=== PATIENT | male | born 1940 | race American Indian/Alaskan Native ===

== ENCOUNTER 2020-08-04 06:46 | Inpatient (IN) | payer MEDICARE ==
--- NOTE | 2020-08-04 07:51 | Emergency Department Report ---
ED General Adult HPI - General Chief complaint: Dizziness Stated complaint: DIZZINESS/SOB PUI?: No Time Seen by Provider: 08/04/20 07:16 Source: patient Mode of arrival: Ambulatory - History of Present Illness Initial comments: The patient was evaluated in the emergency department for symptoms described in the history of present illness. He/she was evaluated in the context of the global COVID-19 pandemic, which necessitated consideration that the patient might be at risk for infection with the virus that causes COVID-19. Institutional protocols and algorithms that pertain to the evaluation of patients at risk for COVID-19 are in a state of rapid change based on information released by regulatory bodies including the CDC and federal and state organizations. These policies and algorithms were followed during the patient's care in the emergency department. Please note that these policies, procedures and recommendations changed on a rapid basis. The patient is an 80-year-old gentleman. The patient has a history of hypercoagulable state, supposed to be on Xarelto, intermittently compliant, hypertension, DVT, question pulmonary embolism, renal insufficiency, paroxysmal atrial fibrillation. The patient presents to the ER with multiple complaints. His first complaint is dizziness and feeling off balance. This is present for 1 week. The patient is intermittently compliant with his prescription medications. He denies headache, loss of vision, loss of taste and smell. He has intermittent chest pain. He has not had chest pain for about a week. Chest pain is intermittently central, left-sided and right-sided. He also describes shortness of breath. It is exertional. He also has chronic lower extremity swelling. He denies travel, surgery. -: Gradual, days(s) Location: chest Radiation: non-radiation Severity scale (0 -10): 0 Quality: aching Consistency: intermittent Improves with: rest Worsens with: movement - Related Data Home Medications Medication Instructions Recorded Confirmed Last Taken Furosemide [Lasix] 20 mg PO DAILY 12/27/17 12/27/17 12/26/17 20 mg Losartan [Cozaar] 100 mg PO DAILY 12/27/17 12/27/17 12/26/17 100 mg Potassium Chloride [Klor-Con 10 meq PO DAILY 12/27/17 12/27/17 12/26/17 Sprinkle] 10 meq Sertraline [Zoloft] 100 mg PO DAILY 12/27/17 12/27/17 12/26/17 100 mg hydrALAZINE 25 mg PO BID 12/27/17 12/27/17 12/26/17 25 mg Previous Rx's Medication Instructions Recorded Last Taken Type Rivaroxaban [Xarelto] 20 mg PO QDAY #30 tablet 10/02/15 12/26/17 Rx 20 mg carvediloL [Coreg] 3.125 mg PO BID #60 tablet 10/02/15 12/26/17 Rx 2 tablets Amiodarone [Cordarone 200 MG TAB] 200 mg PO BID #60 tab 12/27/17 Unknown Rx Allergies Allergy/AdvReac Type Severity Reaction Status Date / Time No Known Allergies Allergy Verified 08/04/20 07:06 ED Review of Systems ROS: Stated complaint: DIZZINESS/SOB Other details as noted in HPI Constitutional: fever Eyes: denies: eye discharge, vision change ENT: denies: epistaxis Respiratory: cough, shortness of breath Cardiovascular: chest pain, edema Gastrointestinal: denies: abdominal pain, nausea, vomiting, diarrhea, hematemesis, melena, hematochezia Genitourinary: denies: dysuria Musculoskeletal: myalgia Neurological: weakness, abnormal gait Hematological/Lymphatic: denies: easy bleeding ED Past Medical Hx - Past Medical History Hx Congestive Heart Failure: Yes Hx Pulmonary Embolism: Yes Hx Arthritis: Yes Additional medical history: blood clots in legs - Social History Smoking Status: Never Smoker - Medications Home Medications: Home Medications Medication Instructions Recorded Confirmed Last Taken Type Rivaroxaban [Xarelto] 20 mg PO QDAY #30 tablet 10/02/15 12/27/17 12/26/17 Rx 20 mg carvediloL [Coreg] 3.125 mg PO BID #60 tablet 10/02/15 12/27/17 12/26/17 Rx 2 tablets Amiodarone [Cordarone 200 MG TAB] 200 mg PO BID #60 tab 12/27/17 Unknown Rx Furosemide [Lasix] 20 mg PO DAILY 12/27/17 12/27/17 12/26/17 History 20 mg Losartan [Cozaar] 100 mg PO DAILY 12/27/17 12/27/17 12/26/17 History 100 mg Potassium Chloride [Klor-Con 10 meq PO DAILY 12/27/17 12/27/17 12/26/17 History Sprinkle] 10 meq Sertraline [Zoloft] 100 mg PO DAILY 12/27/17 12/27/17 12/26/17 History 100 mg hydrALAZINE 25 mg PO BID 12/27/17 12/27/17 12/26/17 History 25 mg ED Physical Exam - General Limitations: No Limitations General appearance: alert, in no apparent distress - Head Head exam: Present: atraumatic, normocephalic - Eye Eye exam: Present: normal appearance, PERRL, EOMI, other (Visual acuity intact to finger counting, color perception, reading at a close distance). Absent: nystagmus - ENT ENT exam: Present: normal exam, normal orophraynx, mucous membranes moist, normal external ear exam - Neck Neck exam: Present: normal inspection, full ROM. Absent: tenderness, mening ismus - Respiratory Respiratory exam: Present: rales, rhonchi. Absent: respiratory distress, wheezes, chest wall tenderness - Cardiovascular Cardiovascular Exam: Present: regular rate, normal rhythm, normal heart sounds, JVD. Absent: bradycardia, tachycardia, irregular rhythm, systolic murmur, diastolic murmur, rubs, gallop - GI/Abdominal GI/Abdominal exam: Present: soft. Absent: distended, tenderness, guarding, rebound, rigid, pulsatile mass - Rectal Rectal exam: Present: deferred - Extremities Exam Extremities exam: Present: normal inspection, full ROM, pedal edema (2+ edema in the bilateral lower extremities), other (2+ pulses noted in the bilateral upper and lower extremities. There is no palpable cord. negative Homans sign. Muscular compartments are soft. The pelvis is stable.). Absent: calf tenderness - Back Exam Back exam: Present: normal inspection, full ROM. Absent: tenderness, CVA tenderness (R), CVA tenderness (L), paraspinal tenderness, vertebral tenderness - Neurological Exam Neurological exam: Present: alert, oriented X3, other (No facial droop. Tongue midline. Extraocular movements intact bilaterally. Facial sensation intact to light touch in V1, V2, V3 distribution bilaterally. 5 and a 5 strength in 4 extremities. Sensation intact to light touch in 4 extremities.). Absent: motor sensory deficit - Psychiatric Psychiatric exam: Present: normal affect, normal mood - Skin Skin exam: Present: warm, dry, intact, normal color. Absent: rash ED Course Vital Signs 01/28/21 01/28/21 01/28/21 06:52 07:36 07:38 Temperature 97.7 F Pulse Rate 97 H 77 Respiratory 16 20 20 Rate Blood Pressure 165/83 Blood Pressure 147/80 [Left] O2 Sat by Pulse 94 95 96 Oximetry 08/04/20 10:07 Temperature Pulse Rate 68 Respiratory 20 Rate Blood Pressure Blood Pressure 161/95 [Left] O2 Sat by Pulse 95 Oximetry - Reevaluation(s) Reevaluation #1: 08/04/20 08:51 Differential diagnosis, including but not limited to: Subacute stroke, intracranial hemorrhage, pneumonia, acute coronary syndrome, pulmonary embolism, renal insufficiency, urinary tract infection Assessment and plan: 80-year-old gentleman presenting with multiple complaints. Complaint #1, feeling dizzy and off-balance for 1 week. Not a TPA candidate given duration of symptoms. Examination nonfocal, appears to be globally weak. Symptoms present for greater than 24 hours, therefore, not a candidate for large vessel intervention. Examination at this time not consistent or suggestive of large vessel occlusion. Obtain CT scan of the brain, and urgent neurologic consultation. Complaint #2, intermittent chest pain and shortness of breath. Obtain EKG, cardiac enzymes, x-ray the chest, treat symptoms, and obtain D-dimer. Reassess after initial data points. Anticipate admission once initial d iagnostics have resulted. 08/04/20 10:34 Laboratory studies, CT scan of the brain, x-ray of the chest reviewed and appreciated. Neurologic recommendations are reviewed and appreciated. Patient amenable to hospitalization. Neurology advises that Xarelto by itself is adequate, they recommend that Xarelto does not need to be given with aspirin. Patient was concerned about being admitted because he lives at home with his who has dementia. However, case management was able to reach out to patient's family, and secure care for the patient's demented . Hospital physician, Dr. Blanca Talavera to admit Renal function improved when compared to prior. D-dimer markedly elevated. Xarelto ordered, CT angiogram of chest ordered. Reevaluation #2: 08/04/20 11:52 CT scan shows pulmonary emboli, expected. Patient has already received Xarelto. Hospital physician is aware of this finding. Will defer to inpatient team to further follow this up. No evidence of hemodynamic instability, or right heart strain. ED Medical Decision Making - Lab Data Result diagrams: 08/04/20 07:28 08/04/20 07:28 Vital Signs 08/04/20 08/04/20 08/04/20 06:52 07:36 07:38 Temperature 97.7 F Pulse Rate 97 H 77 Respiratory 16 20 20 Rate Blood Pressure 165/83 Blood Pressure 147/80 [Left] O2 Sat by Pulse 94 95 96 Oximetry Lab Results 08/04/20 08/04/20 Range/Units 07:28 07:28 WBC 4.2 L (4.5-11.0) K/mm3 RBC 5.39 H (3.65-5.03) M/mm3 Hgb 12.7 (11.8-15.2) gm/dl Hct 39.9 (35.5-45.6) % MCV 74 L (84-94) fl MCH 24 L (28-32) pg MCHC 32 (32-34) % RDW 15.7 H (13.2-15.2) % Plt Count 135 L (140-440) K/mm3 Tama % (Auto) Compound Filler Sodium 131 L (137-145) mmol/L Potassium 4.0 (3.6-5.0) mmol/L Chloride 96.3 L (98-107) mmol/L Carbon Dioxide 24 (22-30) mmol/L Anion Gap 15 mmol/L BUN 20 (9-20) mg/dL Creatinine 1.6 H (0.8-1.3) mg/dL Estimated GFR 50 ml/min BUN/Creatinine Ratio 13 % Glucose 102 H (75-100) mg/dL Calcium 9.6 (8.4-10.2) mg/dL Total Bilirubin 0.80 (0.1-1.2) mg/dL AST 26 (5-40) units/L ALT 11 (7-56) units/L Alkaline Phosphatase 110 (35-129) units/L Troponin T < 0.010 (0.00-0.029) ng/mL NT-Pro-B Natriuret Pep 33.62 (0-900) pg/mL Total Protein 7.3 (6.3-8.2) g/dL Albumin 4.3 (3.9-5) g/dL Albumin/Globulin Ratio 1.4 % - EKG Data -: EKG Interpreted by Vt EKG shows normal: sinus rhythm Rate: normal - EKG Data 08/04/20 08:51 Sinus rhythm. 87 bpm. Left axis deviation, left anterior fascicular block, right bundle branch block. Abnormal EKG. Not a STEMI. Unchanged from prior. - Radiology Data Radiology results: pending, report reviewed, image reviewed NONENHANCED CT SCAN OF THE HEAD: INDICATION / CLINICAL INFORMATION: 80 years Male; dizzy, unsteady gait. TECHNIQUE: Routine CT head without contrast. All CT scans at this location are performed using CT dose reduction for ALARA by means of automated exposure control. COMPARISON: None. FINDINGS: BRAIN / INTRACRANIAL CONTENTS: No acute hemorrhage, mass effect, midline shift, hydrocephalus, or acute, large territorial infarct. No chronic infarct or encephalomalacia. Moderate cortical involution in the left frontal and parietal convexity; right frontal convexity normal; left the sylvian fissure slightly more prominent than the right side; normal temporal horn tips suggest normal temporal lobes; periventricular and deep hemispheric white matter are normal; CRANIOCERVICAL JUNCTION: No significant abnormality. ORBITS: No significant abnormality of visualized orbits. SINUSES / MASTOIDS: No significant abnormality of the visualized paranasal sinuses or mastoid air cells. ADDITIONAL FINDINGS: None. IMPRESSION: No focal mass, hemorrhage, hydrocephalus, or acute, large territorial infarct.; Moderate cortical involution in the left cerebral hemisphere Signer Name: Amy Rocha MD Signed: 08/04/2020 8:12 AM Workstation Name: [id number] XR chest 1V ap INDICATION / CLINICAL INFORMATION: dyspnea. COMPARISON: None available. FINDINGS: Patient is rotated to the right. SUPPORT DEVICES: None. HEART /PULMONARY VASCULATURE: No significant abnormality. LUNGS / PLEURA: No significant pulmonary or pleural abnormality. No pneumothorax. ADDITIONAL FINDINGS: No significant additional findings. IMPRESSION: 1. No acute findings. Signer Name: Julio Pacheco MD Signed: 08/04/2020 8:08 AM Workstation Name: [id number] Critical care attestation.: If time is entered above; I have spent that time in minutes in the direct care of this critically ill patient, excluding procedure time. ED Disposition Clinical Impression: HTN (hypertension), Dizziness, Shortness of breath, Noncompliance, History of chest pain, Pulmonary embolism Disposition: OP ADMIT IP TO THIS HOSP Is pt being admited?: Yes Does the pt Need Aspirin: No Condition: Good Heart Score - HEART Score History: Slightly suspicious EKG: Non-specific Age: > 65 Risk factors: > 3 risk factors or hx of atherosclerotic disease Troponin: < normal limit HEART Score: 5 - Critical Actions Critical Actions: 4-6 pts:12-16.6% risk of adverse cardiac event. Should be admitted - Assessment Assessment Interval: 24 hours post onset of symptoms +-20 minutes - Level of Consciousness 1a. Level of Consciousness: alert/keenly responsive - LOC Questions 1b. LOC Questions: answers both correctly - LOC Command 1c. LOC Commands: performs tasks correctly - Best Gaze 2. Best Gaze: normal - Visual 3. Visual: no visual loss - Facial Palsy 4. Facial Palsy: normal symmetrical movement - Motor Arm 5a. Motor Arm Left: drift 5b. Motor Arm Right: drift - Motor Leg 6a. Motor Leg Left: drift 6b. Motor Leg Right: drift - Limb Ataxia 7. Limb Ataxia: absent - Sensory 8. Sensory: normal - Best Language 9. Best Language: no aphasia - Dysarthria 10. Dysarthria: normal - Extinction and Inattention 11. Extinction/Inattention: no abnormality - Scoring Total Score: 4 Stroke Severity: Minor Stroke
[2020-08-04 08:06] LABS: Hematocrit 39.9 % (35.5-45.6); Hemoglobin 12.7 gm/dl (11.8-15.2); Mean Corpuscular HGB Conc 32 % (32-34); Mean Corpuscular Volume 74 fl (84-94); Platelet Count 135 K/mm3 (140-440); Red Blood Count 5.39 M/mm3 (3.65-5.03); Red Cell Distribution Width 15.7 % (13.2-15.2)
[2020-08-04 08:35] LABS: Alanine Aminotransferase 11 units/L (7-56); Albumin 4.3 g/dL (3.9-5); BUN/Creatinine Ratio 13; Blood Urea Nitrogen 20 mg/dL (9-20); Calcium 9.6 mg/dL (8.4-10.2); Hemolysis Index 30
--- NOTE | 2020-08-04 09:12 | XRay Report ---
XR chest 1V ap INDICATION / CLINICAL INFORMATION: dyspnea. COMPARISON: None available. FINDINGS: Patient is rotated to the right. SUPPORT DEVICES: None. HEART /PULMONARY VASCULATURE: No significant abnormality. LUNGS / PLEURA: No significant pulmonary or pleural abnormality. No pneumothorax. ADDITIONAL FINDINGS: No significant additional findings. IMPRESSION: 1. No acute findings. Signer Name: Julio Pacheco MD Signed: 08/04/2020 9:08 AM Workstation Name: [id number]
--- NOTE | 2020-08-04 09:14 | Emergency Department Report ---
HPI - General Chief Complaint: Dizziness PUI?: No Time Seen by Provider: 08/04/20 07:16 - HPI HPI: [facility] Tele[facility]urology Consult Services Stat Consult Date of Service: 08/04/2020 08:50:01 Impression: I63.9 - Cerebrovascular accident (CVA), unspecified mechanism (HCC) Comments/Sign-Out: Patients clinical features of dizziness and imbalance can be compatible with diagnosis of acute ischemic stroke however other vascular and non-vascular conditions that present with an acute neurological deficit simulating acute ischemic stroke is possible. Chief differential include: toxic-metabolic distu rbances Hemodynamic impairment CT HEAD: Showed No Acute Hemorrhage or Acute Core Infarct Metrics: [facility] Notification Time: 08/04/2020 08:49:19 Stamp Time: 08/04/2020 08:50:01 Callback Response Time: 08/04/2020 08:51:13 Our recommendations are outlined below. Recommendations: Cont on Eliquis, consider alternative if AIS is found and compliance can be proven Imaging Studies: MRI Head MRA Head and Neck Without Contrast When Available - Stroke Protocol Echocardiogram - Transthoracic Echocardiogram Therapies: Physical Therapy, Occupational Therapy, Speech Therapy Assessment When Applicable Other WorkUp: Infectious/metabolic workup per primary team Disposition: Neurology Follow Up Recommended Sign Out: Discussed with Emergency Department Provider Chief Complaint: Dizziness and SOB History of Present Illness: Patient is a 80 year old Male. h/o hypercoagulable state, HTN, DVT, ?PE, Renal insuffeciency, A fib a/w One week intermittent dizziness and unsteady gait. In the ED he was found to be globally weak on exam, but nonfocal. He also c/o SOB Examination: BP(148/76), Pulse(95), Blood Glucose(102) 1A: Level of Consciousness - Alert; keenly responsive + 0 1B: Ask Month and Age - Both Questions Right + 0 1C: Blink Eyes & Squeeze Hands - Performs Both Tasks + 0 2: Test Horizontal Extraocular Movements - Normal + 0 3: Test Visual Guzman - No Visual Loss + 0 4: Test Facial Palsy (Use Grimace if Obtunded) - Normal symmetry + 0 5A: Test Left Arm Motor Drift - No Drift for 10 Seconds + 0 5B: Test Right Arm Motor Drift - No Drift for 10 Seconds + 0 6A: Test Left Leg Motor Drift - No Drift for 5 Seconds + 0 6B: Test Right Leg Motor Drift - No Drift for 5 Seconds + 0 7: Test Limb Ataxia (FNF/Heel-Castro) - No Ataxia + 0 8: Test Sensation - Normal; No sensory loss + 0 9: Test Language/Aphasia - Normal; No aphasia + 0 10: Test Dysarthria - Normal + 0 11: Test Extinction/Inattention - No abnormality + 0 NIHSS Score: 0 Patient/Family was informed the Neurology Consult would occur via TeleHealth consult by way of interactive audio and video telecommunications and consented to receiving care in this manner. Due to the immediate potential for life-threatening deterioration due to underlying acute neurologic illness, I spent 35 minutes providing critical care. This time includes time for face to face visit via telemedicine, review of medical records, imaging studies and discussion of findings with providers, the patient and/or family. Dr Tootie Huynh [facility] Case [id number] ED Past Medical Hx - Past Medical History Hx Congestive Heart Failure: Yes Hx Pulmonary Embolism: Yes Hx Arthritis: Yes Additional medical history: blood clots in legs - Social History Smoking Status: Never Smoker - Medications Home Medications: Home Medications Medication Instructions Recorded Confirmed Last Taken Type Rivaroxaban [Xarelto] 20 mg PO QDAY #30 tablet 10/02/15 12/27/17 12/26/17 Rx 20 mg carvediloL [Coreg] 3.125 mg PO BID #60 tablet 10/02/15 12/27/17 12/26/17 Rx 2 tablets Amiodarone [Cordarone 200 MG TAB] 200 mg PO BID #60 tab 12/27/17 Unknown Rx Furosemide [Lasix] 20 mg PO DAILY 12/27/17 12/27/17 12/26/17 History 20 mg Losartan [Cozaar] 100 mg PO DAILY 12/27/17 12/27/17 12/26/17 History 100 mg Potassium Chloride [Klor-Con 10 meq PO DAILY 12/27/17 12/27/17 12/26/17 History Sprinkle] 10 meq Sertraline [Zoloft] 100 mg PO DAILY 12/27/17 12/27/17 12/26/17 History 100 mg hydrALAZINE 25 mg PO BID 12/27/17 12/27/17 12/26/17 History 25 mg ED Review of Systems ROS: Stated complaint: DIZZINESS/SOB Other details as noted in HPI Constitutional: fever Eyes: denies: eye discharge, vision change ENT: denies: epistaxis Respiratory: cough, shortness of breath Cardiovascular: chest pain, edema Gastrointestinal: denies: abdominal pain, nausea, vomiting, diarrhea, hematemesis, melena, hematochezia Genitourinary: denies: dysuria Musculoskeletal: myalgia Neurological: weakness, abnormal gait Hematological/Lymphatic: denies: easy bleeding Physical Exam - Physical Exam Vital Signs: Vital Signs 08/04/20 08/04/20 08/04/20 06:52 07:36 07:38 Temperature 97.7 F Pulse Rate 97 H 77 Respiratory 16 20 20 Rate Blood Pressure 165/83 Blood Pressure 147/80 [Left] O2 Sat by Pulse 94 95 96 Oximetry ED Course Vital Signs 08/04/20 08/04/20 08/04/20 06:52 07:36 07:38 Temperature 97.7 F Pulse Rate 97 H 77 Respiratory 16 20 20 Rate Blood Pressure 165/83 Blood Pressure 147/80 [Left] O2 Sat by Pulse 94 95 96 Oximetry ED Medical Decision Making - Lab Data Result diagrams: 08/04/20 07:28 08/04/20 07:28 Critical care attestation.: If time is entered above; I have spent that time in minutes in the direct care of this critically ill patient, excluding procedure time. ED Disposition Clinical Impression: HTN (hypertension) Disposition: DC-09 OP ADMIT IP TO THIS HOSP Is pt being admited?: Yes Condition: Stable Instructions: Hypertension (ED) Referrals: PRIMARY CARE,MD [Primary Care Provider] - 3-5 Days
--- NOTE | 2020-08-04 09:16 | Cat Scan Report ---
NONENHANCED CT SCAN OF THE HEAD: INDICATION / CLINICAL INFORMATION: 80 years Male; dizzy, unsteady gait. TECHNIQUE: Routine CT head without contrast. All CT scans at this location are performed using CT dos e reduction for ALARA by means of automated exposure control. COMPARISON: None. FINDINGS: BRAIN / INTRACRANIAL CONTENTS: No acute hemorrhage, mass effect, midline shift, hydrocephalus, or acu te, large territorial infarct. No chronic infarct or encephalomalacia. Moderate cortical involution i n the left frontal and parietal convexity; right frontal convexity normal; left the sylvian fissure s lightly more prominent than the right side; normal temporal horn tips suggest normal temporal l obes; periventricular and deep hemispheric white matter are normal; CRANIOCERVICAL JUNCTION: No significant abnormality. ORBITS: No significant abnormality of visualized orbits. SINUSES / MASTOIDS: No significant abnormality of the visualized paranasal sinuses or mastoid air myriam ls. ADDITIONAL FINDINGS: None. IMPRESSION: No focal mass, hemorrhage, hydrocephalus, or acute, large territorial infarct.; Moderate cortical in volution in the left cerebral hemisphere Signer Name: Amy Quiroz MD Signed: 08/04/2020 9:12 AM Workstation Name: [facility])
[2020-08-04 09:56] LABS: Anisocytosis 1+; Poikilocytosis 1+; Total Cells Counted 100
[2020-08-04 09:57] LABS: Burr Cells Few; Hypochromasia 1+; Ovalocytes Few; Platelet Estimate Consistent w Auto
[2020-08-04] MEDS ORDERED: SODIUM CHLORIDE 0.9% 250ML 250 ML IV ONE (10:31)
[2020-08-04 10:53] LABS: Bilirubin,Urine NEG (Negative); Blood,Urine MOD (Negative); Color,Urine Yellow (Yellow); Mucus,Urine FEW /HPF; Urobilinogen,Urine < 2.0 mg/dL (<2.0)
[2020-08-04] MEDS ORDERED: RIVAROXABAN 20 MG TAB PO ONE (11:00)
[2020-08-04] MEDS ORDERED: MORPHINE 2 MG/1 ML INJ IV PRN ×2 (11:21)
[2020-08-04] MEDS ORDERED: ACETAMINOPHEN 325 MG TAB PO PRN ×2 (11:21)
[2020-08-04] MEDS ORDERED: PROMETHAZINE 25 MG RECT SUPP PR PRN (11:21)
[2020-08-04] MEDS ORDERED: METOCLOPRAMIDE 10 MG TAB PO PRN (11:21)
[2020-08-04] MEDS ORDERED: MAGNESIUM HYDROXIDE (MOM) ORAL LIQD UDC PO PRN ×2 (11:21)
[2020-08-04] MEDS ORDERED: ONDANSETRON 4 MG/2 ML INJ IV PRN ×2 (11:21)
--- NOTE | 2020-08-04 11:37 | History and Physical Report ---
History of Present Illness Date of examination: 08/04/20 Date of admission: 08/04/2020 Chief complaint: Dizziness Unsteady gait Chest Pain History of present illness: 80-year-old male with significant past medical history of CHF, arthritis, history of hypercoagulable state with DVTs and pulmonary embolism in the past, paroxysmal atrial fibrillation presenting to the emergency room today complaining of dizziness and feeling off balance for about a week. Patient admits that he has not been quite compliant with his Xarelto for his anticoagulation. He has had some mild shortness of breath and chest pain. Chest pain is said to be intermittent. He denies any cough, no nausea vomiting, no headache , no blurry vision, no fever or chills. Patient denies any sick contacts and no recent travel. Denies any contact with anyone with COVID-19. Work-up in the emergency room today reveals elevated D-dimer. CT angiogram was significant for pulmonary embolism. Chest x-ray was unremarkable. Patient was evaluated initially by tele-neurologist. He was recommended for a CVA work-up. Patient is being admitted for pulmonary embolism and started on anticoagulation. Past History Past Medical History: arthritis, heart failure, pulmonary embolism Past Surgical History: No surgical history Social history: no significant social history Family history: no significant family history Medications and Allergies Allergies Allergy/AdvReac Type Severity Reaction Status Date / Time No Known Allergies Allergy Verified 08/04/20 07:06 Home Medications Medication Instructions Recorded Confirmed Last Taken Type carvediloL [Coreg] 3.125 mg PO BID #60 tablet 10/02/15 08/04/20 12/26/17 Rx 2 tablets Amiodarone [Cordarone 200 MG TAB] 200 mg PO BID #60 tab 12/27/17 08/04/20 Unknown Rx Furosemide [Lasix] 20 mg PO DAILY 12/27/17 08/04/20 08/04/20 18:56 History 15 Losartan [Cozaar] 100 mg PO DAILY 12/27/17 08/04/20 12/26/17 History 100 mg Potassium Chloride [Klor-Con 10 meq PO DAILY 12/27/17 08/04/20 12/26/17 History Sprinkle] 10 meq Sertraline [Zoloft] 100 mg PO DAILY 12/27/17 08/04/20 12/26/17 History 100 mg hydrALAZINE 25 mg PO BID 12/27/17 08/04/20 12/26/17 History 25 mg Rivaroxaban [Xarelto] 15 mg PO QDAY 08/04/20 08/04/20 08/04/20 18:00 History Active Meds: Active Medications Acetaminophen (Acetaminophen 325 Mg Tab) 650 mg PO Q4H PRN PRN Reason: Pain, Mild (1-3) Acetaminophen (Acetaminophen 325 Mg Tab) 650 mg PO Q4H PRN PRN Reason: Pain MILD(1-3)/Fever >100.5/BRAGG Aspirin (Aspirin 325 Mg Tab) 325 mg PO QDAY CHEMO Atorvastatin Calcium (Atorvastatin 40 Mg Tab) 40 mg PO QHS CHEMO Bisacodyl (Bisacodyl 10 Mg Rect Supp) 10 mg AR QDAY PRN PRN Reason: Constipation Magnesium Hydroxide (Magnesium Hydroxide (Mom) Oral Liqd Udc) 30 ml PO Q4H PRN PRN Reason: Constipation Magnesium Hydroxide (Magnesium Hydroxide (Mom) Oral Liqd Udc) 30 ml PO Q4H PRN PRN Reason: Constipation Metoclopramide HCl (Metoclopramide 10 Mg Tab) 10 mg PO Q6H PRN PRN Reason: Nausea And Vomiting Morphine Sulfate (Morphine 2 Mg/1 Ml Inj) 2 mg IV Q4H PRN PRN Reason: Pain, Moderate (4-6) Morphine Sulfate (Morphine 2 Mg/1 Ml Inj) 2 mg IV Q4H PRN PRN Reason: Pain, Moderate (4-6) Ondansetron HCl (Ondansetron 4 Mg/2 Ml Inj) 4 mg IV Q8H PRN PRN Reason: Nausea And Vomiting Ondansetron HCl (Ondansetron 4 Mg/2 Ml Inj) 4 mg IV Q8H PRN PRN Reason: Nausea And Vomiting Promethazine HCl (Promethazine 25 Mg Rect Supp) 25 mg AR Q6H PRN PRN Reason: Nausea And Vomiting Sodium Chloride (Sodium Chloride 0.9% 10 Ml Flush Syringe) 10 ml INJ PRN PRN PRN Reason: LINE FLUSH Sodium Chloride (Sodium Chloride 0.9% 10 Ml Flush Syringe) 10 ml IV BID CHEMO Sodium Chloride (Sodium Chloride 0.9% 10 Ml Flush Syringe) 10 ml IV PRN PRN PRN Reason: LINE FLUSH Review of Systems Constitutional: no fever, no chills Ears, nose, mouth and throat: no nasal congestion, no sore throat Cardiovascular: chest pain, no orthopnea, no palpitations Respiratory: shortness of breath, no cough, no congestion, no wheezing Gastrointestinal: no abdominal pain, no nausea, no vomiting, no diarrhea Genitourinary Male: no dysuria, no hematuria, no flank pain Musculoskeletal: no neck pain, no low back pain Integumentary: no rash, no pruritis Neurological: balance difficulties, gait dysfunction, no numbness, no tingling, no seizures, no syncope, no headaches, no confusion Psychiatric: no anxiety, no depression Exam - Constitutional Vitals: Temp Pulse Resp BP Pulse Ox 97.7 F 68 20 161/95 95 08/04/20 06:52 08/04/20 10:07 08/04/20 10:07 08/04/20 10:07 08/04/20 10:07 General appearance: Present: no acute distress, well-nourished - EENT Eyes: Present: PERRL, EOM intact. Absent: scleral icterus ENT: hearing intact, clear oral mucosa, dentition normal - Neck Neck: Present: supple, normal ROM - Respiratory Respiratory effort: normal Respiratory: bilateral: CTA - Cardiovascular Rhythm: regular Heart Sounds: Present: S1 & S2. Absent: gallop, systolic murmur, diastolic murmur, rub - Extremities Extremities: no ischemia, pulses intact, pulses symmetrical, Full ROM Extremity abnormal: edema (Trace bilateral ankle edema) Peripheral Pulses: within normal limits - Integumentary Integumentary: Present: clear, warm, dry. Absent: rash - Musculoskeletal Musculoskeletal: strength equal bilaterally - Psychiatric Psychiatric: appropriate mood/affect, intact judgment & insight, memory intact, cooperative - Neurologic Neurologic: CNII-XII intact, no focal deficits, moves all extremities HEART Score - HEART Score EKG: Non-specific Age: > 65 Risk factors: > 3 risk factors or hx of atherosclerotic disease Troponin: Troponin T < 0.010 ng/mL (0.00-0.029) 08/04/20 07:28 Troponin: < normal limit - Critical Actions Critical Actions: 4-6 pts:12-16.6% risk of adverse cardiac event. Should be admitted Results - Labs CBC & Chem 7: 08/04/20 07:28 08/04/20 07:28 Labs: Abnormal lab results 08/04/20 08/04/20 08/04/20 Range/Units 07:28 07:28 07:28 WBC 4.2 L (4.5-11.0) K/mm3 RBC 5.39 H (3.65-5.03) M/mm3 MCV 74 L (84-94) fl MCH 24 L (28-32) pg RDW 15.7 H (13.2-15.2) % Plt Count 135 L (140-440) K/mm3 Monocytes % (Manual) 19.0 H (0.0-7.3) % Lymphocytes # (Manual) 0.7 L (1.2-5.4) K/mm3 D-Dimer (0-234) ng/mlDDU Sodium 131 L (137-145) mmol/L Chloride 96.3 L (98-107) mmol/L Creatinine 1.6 H (0.8-1.3) mg/dL Glucose 102 H (75-100) mg/dL Total Creatine Kinase 186 H (55-170) units/L 08/04/20 Range/Units 08:57 WBC (4.5-11.0) K/mm3 RBC (3.65-5.03) M/mm3 MCV (84-94) fl MCH (28-32) pg RDW (13.2-15.2) % Plt Count (140-440) K/mm3 Monocytes % (Manual) (0.0-7.3) % Lymphocytes # (Manual) (1.2-5.4) K/mm3 D-Dimer 6359.53 H (0-234) ng/mlDDU Sodium (137-145) mmol/L Chloride (98-107) mmol/L Creatinine (0.8-1.3) mg/dL Glucose (75-100) mg/dL Total Creatine Kinase (55-170) units/L Assessment and Plan - Patient Problems (1) Pulmonary embolism Current Visit: Yes Status: Acute Plan to address problem: Patient placed on anticoagulation. He has known history of hypercoagulable state. Patient counseled on compliance with medications. (2) Dizziness Current Visit: Yes Status: Acute Plan to address problem: Etiology unclear. CT scan of the head has been negative. Patient is being worked up for possible CVA. (3) HTN (hypertension) Current Visit: Yes Status: Chronic Plan to address problem: We will resume routine home medications and monitor vital signs closely. (4) Noncompliance Current Visit: Yes Status: Acute Plan to address problem: Compliance encouraged. (5) DVT prophylaxis Current Visit: No Status: Acute Plan to address problem: Patient currently on anticoagulation. (6) Full code status Current Visit: Yes Status: Acute Plan to address problem: Patient is a full code.
--- NOTE | 2020-08-04 11:45 | Cat Scan Report ---
CTA CHEST WITH IV CONTRAST INDICATION: acute dyspnea, + d dimer, hx dvt, pe. TECHNIQUE: Axial CT images were obtained through the chest after injection of 100 cc Omni 350 IV contrast. 3 dominick ne MIP reconstructions were produced. All CT scans at this location are performed using CT dose reduc tion for ALARA by means of automated exposure control. COMPARISON: None available. FINDINGS: PULMONARY ARTERIES: Acute moderate sized pulmonary emboli several segmental branches both lower lobes . Small right upper lobe PTE THORACIC AORTA: No acute abnormality. HEART: Normal. CORONARY ARTERIES: No significant calcification. PLEURA: No pleural effusion. No pneumothorax. LYMPH NODES: No significant adenopathy. LUNGS: No acute air space or interstitial disease. ADDITIONAL FINDINGS: None. UPPER ABDOMEN: No acute findings. SKELETAL STRUCTURES: No significant osseous abnormality. IMPRESSION: 1. Acute moderate pulmonary emboli right upper and both lower lobe segmental pulmonary arteries CRITICAL RESULT: Acute bilateral lower lobe PTE Time of Discovery: 10:35 AM 08/04/2020 Central time Time of Communication: 10:41 AM Licensed Practitioner Receiving Report: Caden Prather Read Back Performed: Yes. Signer Name: Rosalio Anton MD Signed: 08/04/2020 11:40 AM Workstation Name: [id number]
--- NOTE | 2020-08-04 14:07 | Magnetic Resonance Report ---
MRI BRAIN 08/04/2020 INDICATION / CLINICAL INFORMATION: Gait disturbance. Dizziness.. TECHNIQUE: Multiplanar, multisequence MR images of the brain were obtained. COMPARISON: CT brain 08/04/2020 FINDINGS: BRAIN / INTRACRANIAL CONTENTS: Unenhanced MR images of the brain dated straight no evidence of acute intracranial abnormality. Ventricles and sulci are normal in size and shape for a patient of this age. Mild chronic white matter T2 weighted hyperintensities are present in the periventricular and deep wh ite matter of cerebral hemispheres. There is no evidence of acute ischemic injury, hemorrhage, or mass. There are no abnormal extra-axial fluid collections. EXTRACRANIAL: Unremarkable CRANIOCERVICAL JUNCTION: No significant abnormality. VASCULAR FLOW-VOIDS: No significant abnormality. IMPRESSION: No acute abnormality. Mild chronic and age-related changes. Signer Name: Lasha Cash MD Signed: 08/04/2020 2:03 PM Workstation Name: [id number]
--- NOTE | 2020-08-04 14:16 | Magnetic Resonance Report ---
MRA HEAD 08/04/2020 INDICATION / CLINICAL INFORMATION: stroke. TECHNIQUE: Routine MRA of the head is performed. 3-D/MIP reformats postprocessed. COMPARISON: None available. FINDINGS: MRA HEAD: Intracranial internal carotid arteries: Moderate atherosclerotic type irregularity of the distal inte rnal carotid arteries, without evidence of occlusion. Anterior cerebral arteries: No significant abnormality. Middle cerebral arteries: No significant abnormality. Intracranial vertebral arteries: No significant abnormality. Basilar artery: No significant abnormality. Posterior cerebral arteries: No significant abnormality. Signer Name: Lasha Cash MD Signed: 08/04/2020 2:11 PM Workstation Name: [id number]
--- NOTE | 2020-08-04 14:26 | Vascular Lab Report ---
DUPLEX DOPPLER ULTRASOUND CAROTID, BILATERAL INDICATION / CLINICAL INFORMATION: stroke. COMPARISON: None available. FINDINGS: RIGHT CAROTID: - PLAQUE ESTIMATE (%): < 50% - CCA velocity: 124 cm/sec. - ICA peak systolic velocity: 88 cm/sec. - ICA/CCA PSV Ratio: Less than 2 Right Vertebral Artery: Antegrade flow. LEFT CAROTID: - PLAQUE ESTIMATE: < 50% - CCA velocity: 113 cm/sec. - ICA peak systolic velocity: 119 cm/sec. - ICA/CCA PSV Ratio: Less than 2 Left Vertebral Artery: Antegrade flow. IMPRESSION: 1. Right Internal Carotid Artery: Less than 50% diameter stenosis. 2. Left Internal Carotid Artery: Less than 50% diameter stenosis. Velocity criteria are extrapolated from diameter data as defined by the Society of Radiologists in Ul trasound Consensus Conference, Radiology 2003; 229;340-346. NO STENOSIS (NORMAL) * Plaque = none; ICA PSV < 125 cm/sec; ICA/CCA PSV Ratio < 2.0 <50% STENOSIS * Plaque < 50%; ICA PSV < 125 cm/sec; ICA/CCA PSV Ratio < 2.0 50-69% STENOSIS * Plaque > 50%; ICA PSV = 125-230 cm/sec; ICA/CCA PSV Ratio = 2.0-4.0 >70% BUT <100% STENOSIS * Plaque > 50%; ICA PSV > 230 cm/sec; ICA/CCA PSV Ratio > 4.0 NEAR OCCLUSION * Plaque = visible lumen; ICA PSV = high/low/none; ICA/CCA PSV Ratio = variable TOTAL OCCLUSION * Plaque = no lumen; ICA PSV = none; ICA/CCA PSV Ratio = N/A Signer Name: Julio Pacheco MD Signed: 08/04/2020 2:22 PM Workstation Name: [id number]
--- NOTE | 2020-08-04 15:34 | Consultation ---
History of Present Illness Consult date: 08/04/20 Reason for Consult: r/o cva Chief complaint: Dizzy when i get up" History of present illness: 80 yo male with pe, dvt, afib, intermittently compliant w/ medications, htn, chf, arthritis, who presents with 1 week of intermittent chest pain, shortness of breath, dizziness (light-headedness w/ standing up especially or w/ exertion), and shrotness of breath (w/ exertion). Notes he feels fine when he is lying down except for the chest pain. He denies any other neurologic symptoms at present. Notes he sometimes forgets to take his medications because he is caring for his who has dementia. Past History Past Medical History: arthritis, heart failure, pulmonary embolism Past Surgical History: No surgical history Social history: no significant social history Family history: no significant family history Medications and Allergies Allergies Allergy/AdvReac Type Severity Reaction Status Date / Time No Known Allergies Allergy Verified 08/04/20 07:06 Home Medications Medication Instructions Recorded Confirmed Last Taken Type Rivaroxaban [Xarelto] 20 mg PO QDAY #30 tablet 10/02/15 12/27/17 12/26/17 Rx 20 mg carvediloL [Coreg] 3.125 mg PO BID #60 tablet 10/02/15 12/27/17 12/26/17 Rx 2 tablets Amiodarone [Cordarone 200 MG TAB] 200 mg PO BID #60 tab 12/27/17 Unknown Rx Furosemide [Lasix] 20 mg PO DAILY 12/27/17 12/27/17 12/26/17 History 20 mg Losartan [Cozaar] 100 mg PO DAILY 12/27/17 12/27/17 12/26/17 History 100 mg Potassium Chloride [Klor-Con 10 meq PO DAILY 12/27/17 12/27/17 12/26/17 History Sprinkle] 10 meq Sertraline [Zoloft] 100 mg PO DAILY 12/27/17 12/27/17 12/26/17 History 100 mg hydrALAZINE 25 mg PO BID 12/27/17 12/27/17 12/26/17 History 25 mg Active Meds: Active Medications Acetaminophen (Acetaminophen 325 Mg Tab) 650 mg PO Q4H PRN PRN Reason: Pain MILD(1-3)/Fever >100.5/BRAGG Aspirin (Aspirin 325 Mg Tab) 325 mg PO QDAY [facility] Atorvastatin Calcium (Atorvastatin 40 Mg Tab) 40 mg PO QHS [facility] Bisacodyl (Bisacodyl 10 Mg Rect Supp) 10 mg VT QDAY PRN PRN Reason: Constipation Magnesium Hydroxide (Magnesium Hydroxide (Mom) Oral Liqd Udc) 30 ml PO Q4H PRN PRN Reason: Constipation Metoclopramide HCl (Metoclopramide 10 Mg Tab) 10 mg PO Q6H PRN PRN Reason: Nausea And Vomiting Morphine Sulfate (Morphine 2 Mg/1 Ml Inj) 2 mg IV Q4H PRN PRN Reason: Pain, Moderate (4-6) Ondansetron HCl (Ondansetron 4 Mg/2 Ml Inj) 4 mg IV Q8H PRN PRN Reason: Nausea And Vomiting Promethazine HCl (Promethazine 25 Mg Rect Supp) 25 mg VT Q6H PRN PRN Reason: Nausea And Vomiting Rivaroxaban (Rivaroxaban 15 Mg Tab) 15 mg PO BID [facility]; Protocol Stop: 08/24/20 22:01 Sodium Chloride (Sodium Chloride 0.9% 10 Ml Flush Syringe) 10 ml IV PRN PRN PRN Reason: LINE FLUSH Sodium Chloride (Sodium Chloride 0.9% 10 Ml Flush Syringe) 10 ml IV BID [facility] Sodium Chloride (Sodium Chloride 0.9% 10 Ml Flush Syringe) 10 ml IV PRN PRN PRN Reason: LINE FLUSH Review of Systems All systems: negative (as per HPI;) Physical Examination - Vital Signs Vital Signs: Vital Signs Temp Pulse Resp BP Pulse Ox 97.7 F 97 H 16 165/83 94 08/04/20 06:52 08/04/20 06:52 08/04/20 06:52 08/04/20 06:52 08/04/20 06:52 - Physical Exam Narrative exam: Gen: nad, well-nourished; Head: normocephalic; Eyes: no gaze deviation; no ptosis; ENT: normal vocalization; CVS: warm and well-perfused; Pulm: no respiratory distress; GI: non-distended; Ext: no cyanosis but +edema at distal extremities; Skin: no acute rash at distal extremities; Heme: no pathologic bruising at distal extremities; Neuro: alert, oriented to name, age, month, year, mild dysarthria, no aphasia, CN 2 - PERRL, visual fisher intact, CN 3, 4, 6 - EOMI, CN 5 - facial sensation symmetric to light touch, CN 7 - facial movement symmetric, CN 8 - hearing grossly intact, CN 9, 10 - uvula midline, CN 11 - shrug symmetric, CN 12 - tongue midline; Motor - at least 4+/5 at right exts and at least 4/5 at distal left exts; Sensory - light touch noted with dysesthesia at left arm/leg, Cerebellar - fnf /hts slowed/intact, Gait - deferred secondary to fall risk; NIHSS (1a.) Level of Consciousness:0 (1b.) LOC Questions:0 (1c.) LOC Commands:0 (2.) Best Gaze:0 (3.) Visual:0 (4.) Facial Palsy:0 (5a.) Motor Arm, Left:0 (5b.) Motor Arm, Right:0 (6a.) Motor Leg, Left:0 (6b.) Motor Leg, Right:0 (7.) Limb Ataxia:0 (8.) Sensory:01 (9.) Best Language:0 (10.) Dysarthria:1 (11.) Extinction and Inattention:0 NIHSS Total Score: 1 Results - Laboratory Findings CBC and BMP: 08/04/20 07:28 08/04/20 07:28 Abnormal Lab Findings: Abnormal Labs 08/04/20 08/04/20 08/04/20 07:28 07:28 07:28 WBC 4.2 L RBC 5.39 H MCV 74 L MCH 24 L RDW 15.7 H Plt Count 135 L Monocytes % (Manual) 19.0 H Lymphocytes # (Manual) 0.7 L D-Dimer Sodium 131 L Chloride 96.3 L Creatinine 1.6 H Glucose 102 H Total Creatine Kinase 186 H 08/04/20 08:57 WBC RBC MCV MCH RDW Plt Count Monocytes % (Manual) Lymphocytes # (Manual) D-Dimer 6359.53 H Sodium Chloride Creatinine Glucose Total Creatine Kinase Assessment and Plan 80 yo male with pe, dvt, afib, intermittently compliant w/ medications, htn, chf, arthritis, who presents with 1 week of intermittent chest pain, shortness of breath, dizziness (light-headedness w/ standing up especially or w/ exertion), and shortness of breath (w/ exertion). MRI Brain negative; MRA/CUS w/ atherosclerotic disease. 1. Orthostatic dizziness - consider orthostatic vitals, per primary team. 2. Unsteadiness w/ shortness of breath w/ chest pain - likely secondary to PE and poor endurance. 3. Afib - continue anticoagulation (if no contraindications) for stroke prophylaxis as the pt has a high [id number] score. 4. HTN - aim for normotension. 5. Atherosclerotic Disease - confirm LDL and initiate statin thearpy if LDL >100 and no contraindications. Karl Major MD Neurology
[2020-08-04] MEDS: RIVAROXABAN 15 MG TAB PO SCH ×2 (17:59→21:56)
[2020-08-05 06:06] LABS: Hematocrit 39.7 % (35.5-45.6); Hemoglobin 12.7 gm/dl (11.8-15.2); Mean Corpuscular HGB Conc 32 % (32-34); Mean Corpuscular Volume 73 fl (84-94); Platelet Count 130 K/mm3 (140-440); Red Blood Count 5.41 M/mm3 (3.65-5.03); Red Cell Distribution Width 15.7 % (13.2-15.2)
[2020-08-05 06:11] LABS: BUN/Creatinine Ratio 13; Blood Urea Nitrogen 17 mg/dL (9-20); Calcium 9.5 mg/dL (8.4-10.2); Chol/HDL Ratio 4.43 %; HDL Cholesterol 39 mg/dL (40-59); Hemolysis Index 3; INR 3.54 (0.87-1.13); LDL Cholesterol,Direct 128 mg/dL (50-130)
[2020-08-05 07:17] LABS: Total Cells Counted 100
[2020-08-05 07:18] LABS: Anisocytosis 1+; Burr Cells Few; Hypochromasia 1+; Ovalocytes Few; Platelet Estimate Consistent w Auto
[2020-08-05] MEDS ORDERED: MAGNESIUM HYDROXIDE (MOM) ORAL LIQD UDC PO PRN (10:46)
[2020-08-05] MEDS: RIVAROXABAN 15 MG TAB PO SCH ×2 (11:51→21:26)
[2020-08-05] MEDS: ASPIRIN 325 MG TAB PO SCH (11:51)
--- NOTE | 2020-08-05 15:18 | Progress Note ---
Assessment and Plan - Patient Problems (1) Dizziness Current Visit: Yes Status: Acute Plan to address problem: Dizziness secondary to hypoxemia has resolved since being placed on oxygen. Patient no longer hypoxic not requiring oxygen at this time no dizziness. No fatigue. Able to get up. Main complaint constipation has not used bowel movement in 4 to 5 days. (2) History of chest pain Current Visit: Yes Status: Acute Plan to address problem: Chest pain is resolved secondary to PE. (3) Noncompliance Current Visit: Yes Status: Acute Plan to address problem: Discussed noncompliance. Explained well aware he has to take care of his but the importance of not being around to take care of her. Patient understands. Will be more compliant with medications going forward. (4) Pulmonary embolism Current Visit: Yes Status: Acute Plan to address problem: Patient started back on Xarelto. Should do well no longer hypoxemic. (5) HTN (hypertension) Current Visit: Yes Status: Chronic Plan to address problem: Blood pressure remains fair but suboptimally controlled. Will resume Coreg, hydralazine 25 mg twice daily. Will hold losartan and reinitiate ARB tomorrow if blood pressure remains uncontrolled. (6) BPH (benign prostatic hyperplasia) Current Visit: No Status: Chronic Qualifiers: Lower urinary tract symptom presence: symptoms present Plan to address problem: Urine stream stable no incontinence this time. Resume medical management. (7) Constipation Current Visit: Yes Status: Acute Plan to address problem: We will start patient on milk of magnesia now. We will add fleets enema if not resolved by p.m. (8) Atrial fibrillation Current Visit: Yes Status: Acute Plan to address problem: We will resume AV joshua blocking agent Coreg. Rate is very well controlled. Restart amiodarone. No risk of bleeding. Continue Xarelto. We are treating pulmonary embolism will also treat anticoagulation for A. fib. Subjective Date of service: 08/05/20 Principal diagnosis: Pulmonary embolism Interval history: Patient 80-year-old male with a history of pulmonary embolism chronic DVT atrial fibrillation, hypertension, congestive heart failure and osteoarthritis presented with chief complaint of 1 week of chest pain associated with shortness of breath and dyspnea on exertion. Evaluation in ED revealed unremarkable MRI unremarkable MRA however had chest CT angiogram showed acute pulmonary embolism in the right upper lobe and bilateral lower lobes. Patient therefore admitted for acute pulmonary embolism. At present patient states he feels better however complains of constipation. Patient breathing he states feels remarkably improved. No fever chills no chest pain shortness of breath better since started on oxygen. Patient also relates noncompliance with Xarelto. Patient has Alzheimer's dementia and states he focuses a lot of time on her care. Objective - Constitutional Vitals: Vital Signs - 12hr 08/05/20 08/05/20 04:38 09:53 Temperature 97 F L Pulse Rate 67 65 Respiratory 20 Rate Blood Pressure 149/76 [Left] O2 Sat by Pulse 97 Oximetry General appearance: Present: no acute distress, well-nourished - EENT Eyes: PERRL, EOM intact ENT: hearing intact, clear oral mucosa Ears: bilateral: normal - Neck Neck: supple, normal ROM - Respiratory Respiratory effort: normal Respiratory: bilateral: CTA - Breasts Breasts: normal - Cardiovascular Rhythm: regular Heart Sounds: Present: S1 & S2. Absent: gallop, rub Extremities: pulses intact, No edema, normal color, Full ROM - Gastrointestinal General gastrointestinal: Present: soft, non-tender, non-distended, normal bowel sounds - Genitourinary Male genitourinary: normal - Integumentary Integumentary: clear, warm, dry - Musculoskeletal Musculoskeletal: 1, strength equal bilaterally - Neurologic Neurologic: moves all extremities - Psychiatric Psychiatric: memory intact, appropriate mood/affect, intact judgment & insight - Labs CBC & Chem 7: 08/05/20 05:30 08/05/20 05:30 Labs: Abnormal lab results 08/05/20 08/05/20 08/05/20 Range/Units 05:30 05:30 05:30 WBC 3.6 L (4.5-11.0) K/mm3 RBC 5.41 H (3.65-5.03) M/mm3 MCV 73 L (84-94) fl MCH 24 L (28-32) pg RDW 15.7 H (13.2-15.2) % Plt Count 130 L (140-440) K/mm3 Monocytes % (Manual) 17.0 H (0.0-7.3) % Lymphocytes # (Manual) 1.1 L (1.2-5.4) K/mm3 PT 36.0 H (12.2-14.9) Sec. INR 3.54 H (0.87-1.13) Sodium 133 L (137-145) mmol/L Chloride 97.1 L (98-107) mmol/L Glucose 111 H (75-100) mg/dL HDL Cholesterol 39 L (40-59) mg/dL HEART Score - HEART Score EKG: Non-specific Age: > 65 Risk factors: > 3 risk factors or hx of atherosclerotic disease Troponin: Troponin T < 0.010 ng/mL (0.00-0.029) 08/04/20 14:02 Troponin: < normal limit - Critical Actions Critical Actions: 4-6 pts:12-16.6% risk of adverse cardiac event. Should be admitted
[2020-08-05] MEDS ORDERED: FLEET ENEMA PR ONE (15:23)
[2020-08-05] MEDS: hydrALAZINE 25 MG TAB PO SCH ×2 (18:21→21:26)
[2020-08-05] MEDS: carvediloL 3.125 MG TAB PO SCH (21:27)
[2020-08-05] MEDS: AMIODARONE 200 MG TAB PO SCH (21:27)
[2020-08-06] MEDS: ASPIRIN 325 MG TAB PO SCH (09:48)
[2020-08-06] MEDS: carvediloL 3.125 MG TAB PO SCH ×2 (09:49→21:08)
[2020-08-06] MEDS: AMIODARONE 200 MG TAB PO SCH ×2 (09:50→21:08)
[2020-08-06] MEDS: SERTRALINE 100 MG TAB PO SCH (09:50)
[2020-08-06] MEDS: hydrALAZINE 25 MG TAB PO SCH ×2 (09:50→21:08)
[2020-08-06] MEDS: RIVAROXABAN 15 MG TAB PO SCH ×2 (09:50→21:08)
--- NOTE | 2020-08-06 11:51 | Progress Note ---
Assessment and Plan - Patient Problems (1) Dizziness Current Visit: Yes Status: Acute Plan to address problem: Dizziness secondary to hypoxemia has resolved since being placed on oxygen. Dizziness has resolved. Patient no longer hypoxic not requiring oxygen at this time no dizziness. No fatigue. Able to get up. Main complaint constipation has not used bowel movement in 4 to 5 days. (2) History of chest pain Current Visit: Yes Status: Acute Plan to address problem: Chest pain is resolved secondary to PE. Atypical chest pain secondary to PE. (3) Noncompliance Current Visit: Yes Status: Acute Plan to address problem: Discussed noncompliance. Explained well aware he has to take care of his but the importance of not being around to take care of her. Patient understands. Will be more compliant with medications going forward. (4) Pulmonary embolism Current Visit: Yes Status: Acute Plan to address problem: Patient on Xarelto. Will resume this. Anticipate discharge in a.m. Patient oxygenating well. Will wean oxygen down and if patient does not become hypoxic stable for discharge with Xarelto. (5) HTN (hypertension) Current Visit: Yes Status: Chronic Plan to address problem: Patient has optimal control blood pressure current medical management. (6) BPH (benign prostatic hyperplasia) Current Visit: No Status: Chronic Qualifiers: Lower urinary tract symptom presence: symptoms present Plan to address problem: Urine stream stable no incontinence this time. Resume medical management. (7) Constipation Current Visit: Yes Status: Acute Plan to address problem: Did not resolve yesterday. Will obtain a KUB today. Add lactulose and another fleets enema. (8) Atrial fibrillation Current Visit: Yes Status: Acute Plan to address problem: We will resume AV joshua blocking agent Coreg. Rate is very well controlled. Restart amiodarone. No risk of bleeding. Continue Xarelto. We are treating pulmonary embolism will also treat anticoagulation for A. fib. Subjective Date of service: 08/06/20 Principal diagnosis: Pulmonary embolism Interval history: Patient 80-year-old male with a history of pulmonary embolism chronic DVT atrial fibrillation, hypertension, congestive heart failure and osteoarthritis presented with chief complaint of 1 week of chest pain associated with shortness of breath and dyspnea on exertion. Evaluation in ED revealed unremarkable MRI unremarkable MRA however had chest CT angiogram showed acute pulmonary embolism in the right upper lobe and bilateral lower lobes. Patient therefore admitted for acute pulmonary embolism. At present patient states he feels better however complains of constipation. Patient breathing he states feels remarkably improved. No fever chills no chest pain shortness of breath better since started on oxygen. Patient also relates noncompliance with Xarelto. Patient monique fitzpatrick has Alzheimer's dementia and states he focuses a lot of time on her care. 08/06: Patient breathing much better. Hospital course complicated by abdominal gas pains and constipation. Patient given fleets enema yesterday as well as milk of magnesia and did not have a bowel movement. Objective - Constitutional Vitals: Vital Signs - 12hr 08/05/20 08/06/20 08/06/20 23:52 00:14 04:38 Temperature 98.4 F 98.7 F Pulse Rate 91 H 87 88 Pulse Rate [ Left Radial] Pulse Rate [ Right Radial] Respiratory 20 20 Rate Blood Pressure 177/75 128/79 Blood Pressure [Left] O2 Sat by Pulse 93 97 Oximetry 08/06/20 08/06/20 08/06/20 09:01 09:19 09:49 Temperature 98.4 F Pulse Rate 87 83 87 Pulse Rate [ Left Radial] Pulse Rate [ Right Radial] Respiratory 19 Rate Blood Pressure 135/72 124/67 Blood Pressure 124/56 [Left] O2 Sat by Pulse 99 96 Oximetry 08/06/20 08/06/20 09:50 10:00 Temperature Pulse Rate 87 Pulse Rate [ 88 Left Radial] Pulse Rate [ 88 Right Radial] Respiratory 19 Rate Blood Pressure 124/56 Blood Pressure [Left] O2 Sat by Pulse Oximetry General appearance: Present: no acute distress, well-nourished - EENT Eyes: PERRL, EOM intact ENT: hearing intact, clear oral mucosa Ears: bilateral: normal - Neck Neck: supple, normal ROM - Respiratory Respiratory effort: normal Respiratory: bilateral: CTA - Breasts Breasts: normal - Cardiovascular Rhythm: regular Heart Sounds: Present: S1 & S2. Absent: gallop, rub Extremities: pulses intact, No edema, normal color, Full ROM - Gastrointestinal General gastrointestinal: Present: soft, non-tender, non-distended, normal bowel sounds - Genitourinary Male genitourinary: normal - Integumentary Integumentary: clear, warm, dry - Musculoskeletal Musculoskeletal: 1, strength equal bilaterally - Neurologic Neurologic: moves all extremities - Psychiatric Psychiatric: memory intact, appropriate mood/affect, intact judgment & insight - Labs CBC & Chem 7: 08/05/20 05:30 08/05/20 05:30 HEART Score - HEART Score EKG: Non-specific Age: > 65 Risk factors: > 3 risk factors or hx of atherosclerotic disease Troponin: Troponin T < 0.010 ng/mL (0.00-0.029) 08/04/20 14:02 Troponin: < normal limit - Critical Actions Critical Actions: 4-6 pts:12-16.6% risk of adverse cardiac event. Should be admitted
[2020-08-06] MEDS ORDERED: LACTULOSE 20 GM/30 ML ORAL LIQD PO PRN (11:52)
[2020-08-06] MEDS ORDERED: MINERAL OIL ENEMA 133 ML PR ONE (11:53)
--- NOTE | 2020-08-06 12:45 | XRay Report ---
ABDOMEN ONE VIEW INDICATION / CLINICAL INFORMATION: abdominal pain. COMPARISON: None available. FINDINGS: Nonspecific bowel gas pattern. No definite evidence of obstruction on this exam Signer Name: Kian Lazaro MD FACNina Signed: 08/06/2020 12:41 PM Workstation Name: [id number]
[2020-08-07 07:25] LABS: BUN/Creatinine Ratio 14; Blood Urea Nitrogen 18 mg/dL (9-20); Calcium 9.1 mg/dL (8.4-10.2); Hemolysis Index 2
[2020-08-07] MEDS: carvediloL 3.125 MG TAB PO SCH ×2 (09:35→22:00)
[2020-08-07] MEDS: AMIODARONE 200 MG TAB PO SCH ×2 (09:35→22:00)
[2020-08-07] MEDS: ASPIRIN 325 MG TAB PO SCH (09:35)
[2020-08-07] MEDS: SERTRALINE 100 MG TAB PO SCH (09:35)
[2020-08-07] MEDS: hydrALAZINE 25 MG TAB PO SCH ×2 (09:35→22:00)
[2020-08-07] MEDS: RIVAROXABAN 15 MG TAB PO SCH ×2 (09:35→22:00)
--- NOTE | 2020-08-07 12:11 | Progress Note ---
Assessment and Plan - Patient Problems (1) Dizziness Current Visit: Yes Status: Acute Plan to address problem: Dizziness secondary to hypoxemia has resolved since being placed on oxygen. Dizziness has resolved. Patient no longer hypoxic not requiring oxygen at this time no dizziness. No fatigue. Able to get up. Main complaint constipation has not used bowel movement in 4 to 5 days. No further episodes of dizziness resolved. (2) History of chest pain Current Visit: Yes Status: Acute Plan to address problem: Chest pain is resolved secondary to PE. Atypical chest pain secondary to PE. (3) Noncompliance Current Visit: Yes Status: Acute Plan to address problem: Discussed noncompliance. Explained well aware he has to take care of his but the importance of not being around to take care of her. Patient understands. Will be more compliant with medications going forward. (4) Pulmonary embolism Current Visit: Yes Status: Acute Plan to address problem: Patient on Xarelto. Will resume this. Anticipate discharge in a.m. Patient oxygenating well. Will wean oxygen down and if patient does not become hypoxic stable for discharge with Xarelto. Plan to discharge patient a.m. on Xarelto. Establish need for oxygen. (5) HTN (hypertension) Current Visit: Yes Status: Chronic Plan to address problem: Patient has optimal control blood pressure current medical management. (6) BPH (benign prostatic hyperplasia) Current Visit: No Status: Chronic Qualifiers: Lower urinary tract symptom presence: symptoms present Plan to address problem: Urine stream stable no incontinence this time. Resume medical management. (7) Constipation Current Visit: Yes Status: Acute Plan to address problem: Resolved continue lactulose 30 mL daily. (8) Atrial fibrillation Current Visit: Yes Status: Acute Plan to address problem: We will resume AV joshua blocking agent Coreg. Rate is very well controlled. Restart amiodarone. No risk of bleeding. Continue Xarelto. We are treating pulmonary embolism will also treat anticoagulation for A. fib. Heart rate controlled. Subjective Date of service: 08/07/20 Principal diagnosis: Pulmonary embolism Interval history: Patient 80-year-old male with a history of pulmonary embolism chronic DVT atrial fibrillation, hypertension, congestive heart failure and osteoarthritis presented with chief complaint of 1 week of chest pain associated with shortness of breath and dyspnea on exertion. Evaluation in ED revealed unremarkable MRI unremarkable MRA however had chest CT angiogram showed acute pulmonary embolism in the right upper lobe and bilateral lower lobes. Patient therefore admitted for acute pulmonary embolism. At present patient states he feels better however complains of constipation. Patient breathing he states feels remarkably improved. No fever chills no chest pain shortness of breath better since started on oxygen. Patient also relates noncompliance with Xarelto. Patient has Alzheimer's dementia and states he focuses a lot of time on her care. 08/06: Patient breathing much better. Hospital course complicated by abdominal gas pains and constipation. Patient given fleets enema yesterday as well as milk of magnesia and did not have a bowel movement. 08/07: Patient continues to improve CHF exacerbation. Patient did have bowel movement feels much better after fleets enema. Continue lactulose at this time. Diuresing well. Objective - Constitutional Vitals: Vital Signs - 12hr 08/07/20 08/07/20 08/07/20 00:28 04:55 08:24 Temperature 98.9 F 98.9 F 98.9 F Pulse Rate 62 67 63 Respiratory 20 18 18 Rate Blood Pressure 139/72 122/70 118/64 O2 Sat by Pulse 92 96 95 Oximetry General appearance: Present: no acute distress, well-nourished - EENT Eyes: PERRL, EOM intact ENT: hearing intact, clear oral mucosa Ears: bilateral: normal - Neck Neck: supple, normal ROM - Respiratory Respiratory effort: normal Respiratory: bilateral: CTA - Breasts Breasts: normal - Cardiovascular Rhythm: regular Heart Sounds: Present: S1 & S2. Absent: gallop, rub Extremities: pulses intact, No edema, normal color, Full ROM - Gastrointestinal General gastrointestinal: Present: soft, non-tender, non-distended, normal bowel sounds - Genitourinary Male genitourinary: normal - Integumentary Integumentary: clear, warm, dry - Musculoskeletal Musculoskeletal: strength equal bilaterally, other (Lower extremity edema has resolved this is only venous stasis at this point this is not fluid. Ascites has resolved.) - Neurologic Neurologic: moves all extremities - Psychiatric Psychiatric: memory intact, appropriate mood/affect, intact judgment & insight - Labs CBC & Chem 7: 08/05/20 05:30 08/07/20 05:40 Labs: Abnormal lab results 08/07/20 Range/Units 05:40 Sodium 132 L (137-145) mmol/L Glucose 114 H (75-100) mg/dL HEART Score - HEART Score EKG: Non-specific Age: > 65 Risk factors: > 3 risk factors or hx of atherosclerotic disease Troponin: Troponin T < 0.010 ng/mL (0.00-0.029) 08/04/20 14:02 Troponin: < normal limit - Critical Actions Critical Actions: 4-6 pts:12-16.6% risk of adverse cardiac event. Should be admitted
--- NOTE | 2020-08-07 18:52 | Event Note ---
Date: 08/07/[address] scan. 80 year old male with acute PE and other medical issues. Reviewed CT. No CT criteria for right heart strain. Small-moderate amount of pulmonary embolism thrombus load. No elevated biomarkers. PE risk stratification is low. No need for endovascular treatment. Will see patient tomorrow. Will need anticoagulation for life regardless due to atrial fibrillation.
[2020-08-08 09:40] VITALS: BP 130/67
[2020-08-08] MEDS: carvediloL 3.125 MG TAB PO SCH (09:44)
[2020-08-08] MEDS: ASPIRIN 325 MG TAB PO SCH (09:44)
[2020-08-08] MEDS: SERTRALINE 100 MG TAB PO SCH (09:44)
[2020-08-08] MEDS: hydrALAZINE 25 MG TAB PO SCH (09:45)
[2020-08-08] MEDS: RIVAROXABAN 15 MG TAB PO SCH (09:45)
[2020-08-08] MEDS: AMIODARONE 200 MG TAB PO SCH (09:45)
--- NOTE | 2020-08-08 10:29 | Discharge Summary ---
Providers - Providers Date of Admission: 08/05/20 15:58 Date of discharge: 08/08/20 Attending physician: RICCARDO BAH 08/04/20 Consult to Physician [CONS] Routine Comment: Consulting Provider: AMBREEN VALLEJO Physician Instructions: Reason For Exam: Dizziness, Unsteady Gait. R/O CVA 08/04/20 11:21 Consult to Dietitian/Nutrition [CONS] Routine Physician Instructions: Reason For Exam: Reason for Consult: Nutrition Recommendations Reason for Consult: Diet education Occupational Therapy Evaluate and Treat [CONS] Routine Comment: Reason For Exam: Neuro deficits Physical Therapy Evaluation and Treat [CONS] Routine Comment: Reason For Exam: Neuro deficits 08/07/20 12:17 Consult to Physician [CONS] Routine Comment: need for filter or fur interven given non compl Consulting Provider: SUGAR MORRELL Physician Instructions: Reason For Exam: PE Primary care physician: CAREER GUIDANCE TECHNICIAN Hospitalization Condition: Good Pertinent studies: CTA of chest showed modest pulmonary embolism in the right lower quadrant and right upper quadrant. MRI of the brain only chronic age-related changes Echocardiogram ejection fraction 40 to 45%. Carotid Doppler no significant stenosis. Head CT scan no focal mass no infarctions moderate cortical atrophy Hospital course: Patient 80-year-old male presented with acute hypoxic respiratory failure and chest discomfort. Work-up patient found to have acute pulmonary embolism. Patient was brought in placed on Pradaxa. Patient was on Pradaxa however has dementia and patient spent more time taking care of his and missed medication doses. Patient therefore presented with a PE was treated with oxygen stabilized. Patient also had brief near syncopal episode and was worked up for CVA and was ruled out for CVA with negative MRI negative carotid. Patient also had vascular evaluation and patient did not meet criteria for any further invasive treatment. Disposition: - TO HOME OR SELFCARE - Discharge Diagnoses (1) Dizziness Status: Acute Comment: Resolved was secondary to hypoxemia (2) History of chest pain Status: Acute Comment: Secondary to hypoxemia pulmonary embolism resolved. (3) Noncompliance Status: Acute Comment: Educated about noncompliance and the importance of taking medications to prevent blood clots and pulmonary embolism. Patient is aware this is a lifelong with Pradaxa (4) Pulmonary embolism Status: Acute Comment: Continue Pradaxa patient no longer hypoxic stable on room air at this particular time. (5) HTN (hypertension) Status: Chronic Comment: well controlled (6) BPH (benign prostatic hyperplasia) Status: Chronic Qualifiers: Lower urinary tract symptom presence: symptoms present (7) Constipation Status: Acute Comment: pt now having normal stoo (8) Atrial fibrillation Status: Acute Comment: pradaxa Core Measure Documentation - Palliative Care Palliative Care/ Comfort Measures: Not Applicable - Core Measures Any of the following diagnoses?: DVT/PE - VTE Discharge Requirements Deep Vein Thrombosis/Pulmonary Embolism Present on Admission: No Has pt received <5 days of overlap therapy or INR<2.0: Yes (pt was already on pradaxa and was non compliant and had chronic dvt) Anticoagulant overlap therapy prescribed at discharge: Yes Exam - Constitutional Vitals: Temp Pulse Resp BP Pulse Ox 98.0 F 69 18 130/67 89 08/08/20 08:32 08/08/20 09:44 08/08/20 08:32 08/08/20 09:44 08/08/20 08:32 Plan Plan of Treatment: [place] [facility] [phone] Follow up with: PRIMARY MD MILLI [Primary Care Provider] - 3-5 Days
--- NOTE | 2020-08-08 15:17 | Vascular Lab Report ---
DUPLEX DOPPLER LOWER EXTREMITY VEINS, BILATERAL INDICATION / CLINICAL INFORMATION: Pulmonary embolism, shortness of breath. TECHNIQUE: Duplex doppler imaging was performed through the veins of both lower extremities using venous jeremiah keenan and other maneuvers. COMPARISON: None available. FINDINGS: RIGHT COMMON FEMORAL VEIN: Negative. RIGHT FEMORAL VEIN: Negative. RIGHT POPLITEAL VEIN: Negative. RIGHT CALF VEINS: Negative. LEFT COMMON FEMORAL VEIN: Chronic thrombus. No acute thrombus. LEFT FEMORAL VEIN: Negative. LEFT POPLITEAL VEIN: Negative. LEFT CALF VEINS: Negative. ADDITIONAL FINDINGS: None. IMPRESSION: 1. Chronic, nonocclusive DVT left common femoral vein. No occlusive DVT. Signer Name: Danny Henriquez MD Signed: 08/08/2020 3:13 PM Workstation Name: [id number]
== END 2020-08-08 17:00 | disposition home health service (06) | DRG 175 ==
LOC: ED 06:46 → 4A 11:20 → OBSVTOIN 08-05 15:58
PROVIDERS: ADMIT Internal Medicine Geriatric Medicine; ATTEND Internal Medicine
DX: I26.99 Other pulmonary embolism without acute cor pulmonale (principal); J96.01 Acute respiratory failure with hypoxia; N17.0 Acute kidney failure with tubular necrosis; I82.512 Chronic embolism and thrombosis of left femoral vein; I48.91 Unspecified atrial fibrillation; I11.0 Hypertensive heart disease with heart failure; I50.9 Heart failure, unspecified; M19.90 Unspecified osteoarthritis, unspecified site; K59.00 Constipation, unspecified; R42 Dizziness and giddiness; N40.0 Benign prostatic hyperplasia without lower urinary tract symptoms; Z79.899 Other long term (current) drug therapy; Z91.14 Patient's other noncompliance with medication regimen
CPT/HCPCS: 36415; 70450; 70544; 70551; 71045; 71275; 74018; 80048; 80053; 80061; 81001; 82550; 83735; 83880; 84484; 85007; 85025; 85379; 85610; 93005; 93306; 93880; 93970; 96365; 96375; G0378; A9270-GY; J2270; J2405; J7050; Q9967

== ENCOUNTER 2021-10-27 18:01 | Inpatient (IN) | payer MEDICARE ==
[2021-10-27] MEDS ORDERED: METOPROLOL TARTRATE 5 MG/5 ML INJ IV ONE (18:20)
[2021-10-27] MEDS ORDERED: ENOXAPARIN 100 MG/1 ML INJ SUB-Q ONE (18:21)
--- NOTE | 2021-10-27 18:55 | XRay Report ---
. XR chest 1V ap INDICATION / CLINICAL INFORMATION: Chest Pain, sob. COMPARISON: 08/04/2020 FINDINGS: SUPPORT DEVICES: None. HEART /PULMONARY VASCULATURE: Heart is enlarged with congestion of the pulmonary vasculature. LUNGS / PLEURA: Streaky opacities in the right lung base likely reflect volume loss. Left lung is justin ar. No sizable pleural effusion. No pneumothorax. IMPRESSION: 1. Cardiac enlargement with congestion of the pulmonary vasculature, suggestive of CHF. 2. . Streaky opacities in the right lung base likely reflect volume loss. No other acute findings. Signer Name: Julio Pacheco MD Signed: 10/27/2021 6:51 PM Workstation Name: [id number]
--- NOTE | 2021-10-27 19:14 | Emergency Department Report ---
ED Palpitations HPI - General Chief Complaint: Arrhythmia/Palpitations Stated Complaint: IRR HEARTBEAT Time Seen by Provider: 10/27/21 18:09 Source: patient Mode of arrival: Ambulatory Limitations: No Limitations - History of Present Illness Initial Comments: 81-year-old male with a past medical history of paroxysmal atrial fibrillation, hypertension, pulmonary embolism and chronic leg edema presents to the hospital complaints of intermittent palpitations, shortness of breath, chest pain x1 week. Patient has been noncompliant with his chest pain is described as a intermittent pressure. Symptoms worse with exertion. Patient was seen by his health information manager in the office and found to be in A. fib with RVR and therefore was sent to the hospital. Patient states he has been noncompliant with his medications for the past 2 to 3 days because he is "hard headed" he is also stressed because he is taking care of his demented at home. Daughter has clarified that patient has been off medications at least for 1 year and is chronically noncompliant. As per MAR provided by health information manager medications include Amiodarone 200 mg daily Lasix 40 mg daily Losartan 100 mg daily Metolazone 5 mg daily Metoprolol 25 mg twice daily Sertraline 100 mg daily Spironolactone 25 mg daily Xarelto 20 mg daily [employer] Dr. Prakash with [facility] - Related Data Home Medications Medication Instructions Recorded Confirmed Last Taken Furosemide [Lasix] 20 mg PO DAILY 12/27/17 08/04/20 08/04/20 18:56 15 Losartan [Cozaar] 100 mg PO DAILY 12/27/17 10/27/21 12/26/17 100 mg Potassium Chloride [Klor-Con 10 meq PO DAILY 12/27/17 10/27/21 12/26/17 Sprinkle] 10 meq Sertraline [Zoloft] 100 mg PO DAILY 12/27/17 10/27/21 12/26/17 100 mg Previous Rx's Medication Instructions Recorded Last Taken Type Acetaminophen [Acetaminophen TAB] 650 mg PO Q4H PRN tablet 08/08/20 Unknown Rx Amiodarone [Cordarone 200 MG TAB] 200 mg PO BID #60 tab 08/08/20 Unknown Rx Aspirin 325 mg PO QDAY #30 tablet 08/08/20 Unknown Rx AtorvaSTATin [Lipitor] 40 mg PO QHS #30 tablet 08/08/20 Unknown Rx Magnesium Hydroxide [Milk of 30 ml PO Q4H PRN oral.liqd 08/08/20 Unknown Rx Magnesia] Rivaroxaban [Xarelto] 15 mg PO BID #30 tablet 08/08/20 Unknown Rx Rivaroxaban [Xarelto] 15 mg PO QDAY #30 08/08/20 Unknown Rx hydrALAZINE 25 mg PO BID #60 08/08/20 Unknown Rx Allergies Allergy/AdvReac Type Severity Reaction Status Date / Time No Known Allergies Allergy Verified 08/04/20 07:06 ED Review of Systems ROS: Stated complaint: IRR HEARTBEAT Other details as noted in HPI Comment: All other systems reviewed and negative ED Past Medical Hx - Past Medical History Hx Congestive Heart Failure: Yes Hx Pulmonary Embolism: Yes Hx Arthritis: Yes Additional medical history: blood clots in legs - Social History Smoking Status: Never Smoker - Medications Home Medications: Home Medications Medication Instructions Recorded Confirmed Last Taken Type Furosemide [Lasix] 20 mg PO DAILY 12/27/17 08/04/20 08/04/20 18:56 History 15 Losartan [Cozaar] 100 mg PO DAILY 12/27/17 10/27/21 12/26/17 History 100 mg Potassium Chloride [Klor-Con 10 meq PO DAILY 12/27/17 10/27/21 12/26/17 History Sprinkle] 10 meq Sertraline [Zoloft] 100 mg PO DAILY 12/27/17 10/27/21 12/26/17 History 100 mg Acetaminophen [Acetaminophen TAB] 650 mg PO Q4H PRN tablet 08/08/20 Unknown Rx Amiodarone [Cordarone 200 MG TAB] 200 mg PO BID #60 tab 08/08/20 Unknown Rx Aspirin 325 mg PO QDAY #30 tablet 08/08/20 Unknown Rx AtorvaSTATin [Lipitor] 40 mg PO QHS #30 tablet 08/08/20 Unknown Rx Magnesium Hydroxide [Milk of 30 ml PO Q4H PRN oral.liqd 08/08/20 10/27/21 Unknown Rx Magnesia] Rivaroxaban [Xarelto] 15 mg PO BID #30 tablet 08/08/20 10/27/21 Unknown Rx Rivaroxaban [Xarelto] 15 mg PO QDAY #30 08/08/20 10/27/21 Unknown Rx hydrALAZINE 25 mg PO BID #60 08/08/20 Unknown Rx ED Physical Exam - General Limitations: No Limitations - Other Other exam information: General: No acute distress Head: Atraumatic Eyes: normal appearance ENT: Moist mucous membranes Neck: Normal appearance, no midline tenderness Chest: Clear to auscultation bilaterally CV: Regular rate and rhythm rate 10 5-1 17 on the monitor Abdomen: Soft, normal bowel sounds, nontender, nondistended, no rebound or guarding Back: Normal inspection Extremity: Normal inspection, full range of motion Neuro: Alert O x 3, no facial asymmetry, speech clear, no gross motor sensory deficit Psych: Appropriate behavior Skin: No rash ED Course Vital Signs 10/27/21 10/27/21 18:08 18:47 Temperature 98.3 F Pulse Rate 122 H Respiratory 16 Rate Blood Pressure 177/92 [Left] O2 Sat by Pulse 98 100 Oximetry - Consultations Consultation #1: 10/27/21 20:44 case d/w dr Warren health information manager, rec admission to for obs and cards consultation ED Medical Decision Making - Lab Data Result diagrams: 10/27/21 18:38 10/27/21 19:59 Lab Results 10/27/21 10/27/21 10/27/21 Range/Units 18:38 18:38 18:38 WBC 4.7 (4.5-11.0) K/mm3 RBC 5.07 H (3.65-5.03) M/mm3 Hgb 12.1 (11.8-15.2) gm/dl Hct 39.3 (35.5-45.6) % MCV 78 L (84-94) fl MCH 24 L (28-32) pg MCHC 31 L (32-34) % RDW 16.1 H (13.2-15.2) % Plt Count 169 (140-440) K/mm3 Lymph % (Auto) 19.8 (13.4-35.0) % [place] % (Auto) 9.6 H (0.0-7.3) % Eos % (Auto) 1.2 (0.0-4.3) % Baso % (Auto) 1.0 (0.0-1.8) % Lymph # (Auto) 0.9 L (1.2-5.4) K/mm3 [place] # (Auto) 0.5 (0.0-0.8) K/mm3 Eos # (Auto) 0.1 (0.0-0.4) K/mm3 Baso # (Auto) 0.0 (0.0-0.1) K/mm3 Seg Neutrophils % 68.4 (40.0-70.0) % Seg Neutrophils # 3.2 (1.8-7.7) K/mm3 PT 13.7 (12.2-14.9) Sec. INR 0.95 (0.87-1.13) APTT 27.7 (24.2-36.6) Sec. Sodium TNR Potassium TNR Chloride TNR Carbon Dioxide TNR Anion Gap TNR BUN TNR Creatinine TNR Estimated GFR TNR BUN/Creatinine Ratio TNR Glucose TNR Calcium TNR Total Bilirubin TNR AST TNR ALT TNR Alkaline Phosphatase TNR Troponin T TNR NT-Pro-B Natriuret Pep (0-900) pg/mL Total Protein TNR Albumin TNR Albumin/Globulin Ratio TNR TSH (0.270-4.200) mlU/mL Free T4 (0.76-1.46) ng/dL 10/27/21 10/27/21 10/27/21 Range/Units 18:38 18:54 19:59 WBC (4.5-11.0) K/mm3 RBC (3.65-5.03) M/mm3 Hgb (11.8-15.2) gm/dl Hct (35.5-45.6) % MCV (84-94) fl MCH (28-32) pg MCHC (32-34) % RDW (13.2-15.2) % Plt Count (140-440) K/mm3 Lymph % (Auto) (13.4-35.0) % [place] % (Auto) (0.0-7.3) % Eos % (Auto) (0.0-4.3) % Baso % (Auto) (0.0-1.8) % Lymph # (Auto) (1.2-5.4) K/mm3 [place] # (Auto) (0.0-0.8) K/mm3 Eos # (Auto) (0.0-0.4) K/mm3 Baso # (Auto) (0.0-0.1) K/mm3 Seg Neutrophils % (40.0-70.0) % Seg Neutrophils # (1.8-7.7) K/mm3 PT (12.2-14.9) Sec. INR (0.87-1.13) APTT (24.2-36.6) Sec. Sodium 141 Potassium Chloride Carbon Dioxide 25 Anion Gap BUN 16 Creatinine 1.3 Estimated GFR > 60 BUN/Creatinine Ratio 12 Glucose 115 H Calcium 10.5 H Total Bilirubin 0.70 AST 16 ALT 8 Alkaline Phosphatase 120 Troponin T < 0.010 NT-Pro-B Natriuret Pep 229.5 (0-900) pg/mL Total Protein 6.9 Albumin 4.2 Albumin/Globulin Ratio 1.6 TSH 2.320 (0.270-4.200) mlU/mL Free T4 1.16 (0.76-1.46) ng/dL K 4.1 CHL 105.7 AG 14 - EKG Data -: EKG Interpreted by Me (Quoc. fib rate 123) Rate: tachycardia - EKG Data 10/27/21 19:14 Initial rhythm on the monitor during my examination appeared to be sinus tach rate 100s to 110's even prior to taking medication. Patient received Lopressor 5 mg with improvement of heart rate to the 80s which an obvious sinus rhythm - Radiology Data Radiology results: report reviewed . XR chest 1V ap INDICATION / CLINICAL INFORMATION: Chest Pain, sob. COMPARISON: 08/04/2020 FINDINGS: SUPPORT DEVICES: None. HEART /PULMONARY VASCULATURE: Heart is enlarged with congestion of the pulmonary vasculature. LUNGS / PLEURA: Streaky opacities in the right lung base likely reflect volume loss. Left lung is clear. No sizable pleural effusion. No pneumothorax. IMPRESSION: 1. Cardiac enlargement with congestion of the pulmonary vasculature, sug gestive of CHF. 2. . Streaky opacities in the right lung base likely reflect volume loss. No other acute findings - Medical Decision Making 81-year-old male with a past medical history of paroxysmal atrial fibrillation who was in atrial fibrillation during cardiology office visit. Patient has been noncompliant with his meds for the last 2 to 3 days which is likely the precipitating factor of his symptoms. Chest x-ray suggestive of CHF without signs of hypoxia and patient has chronic leg edema which is unchanged. Patient received 1 dose of IV Lopressor with improvement in heart rate. Patient is now in sinus rhythm. patient also received 1 dose Lasix and Lovenox Critical Care Time: No Critical care attestation.: If time is entered above; I have spent that time in minutes in the direct care of this critically ill patient, excluding procedure time. ED Disposition Clinical Impression: Paroxysmal A-fib, Noncompliance with medication regimen, CHF (congestive heart failure) Disposition: 09 ADMITTED INPATIENT Is pt being admited?: Yes Condition: Stable Time of Disposition: 20:47 (to be admitted to Dr Layton)
[2021-10-27 19:21] LABS: Eosinophils # (Auto) 0.1 K/mm3 (0.0-0.4); Eosinophils % (Auto) 1.2 % (0.0-4.3); Hematocrit 39.3 % (35.5-45.6); Hemoglobin 12.1 gm/dl (11.8-15.2); Lymphocytes # (Auto) 0.9 K/mm3 (1.2-5.4); Lymphocytes % (Auto) 19.8 % (13.4-35.0); Mean Corpuscular HGB Conc 31 % (32-34); Mean Corpuscular Volume 78 fl (84-94); Monocytes # (Auto) 0.5 K/mm3 (0.0-0.8); Monocytes % (Auto) 9.6 % (0.0-7.3); Platelet Count 169 K/mm3 (140-440); Red Blood Count 5.07 M/mm3 (3.65-5.03); Red Cell Distribution Width 16.1 % (13.2-15.2)
[2021-10-27 19:22] LABS: INR 0.95 (0.87-1.13)
[2021-10-27 19:23] LABS: Partial Thromboplastin Time 27.7 Sec. (24.2-36.6)
[2021-10-27 19:40] LABS: Free T4 (Free Thyroxine) 1.16 ng/dL (0.76-1.46)
[2021-10-27 19:52] LABS: Blood Urea Nitrogen TNR mg/dL (9-20)
[2021-10-27 19:53] LABS: BUN/Creatinine Ratio TNR; Calcium TNR mg/dL (8.4-10.2)
[2021-10-27 19:54] LABS: Alanine Aminotransferase TNR units/L (7-56); Albumin TNR g/dL (3.9-5); Hemolysis Index TNR
[2021-10-27 20:24] LABS: Alanine Aminotransferase 8 units/L (7-56); Albumin 4.2 g/dL (3.9-5); BUN/Creatinine Ratio 12; Blood Urea Nitrogen 16 mg/dL (9-20); Calcium 10.5 mg/dL (8.4-10.2); Hemolysis Index 4
[2021-10-27] MEDS ORDERED: FUROSEMIDE 40 MG/4 ML INJ IV ONE (20:46)
[2021-10-27] MEDS ORDERED: NITROGLYCERIN 0.4 MG TAB SUBL SL PRN (22:42)
[2021-10-27] MEDS ORDERED: traMADol 50 MG TAB PO PRN (22:42)
[2021-10-27] MEDS ORDERED: MORPHINE 4 MG/1 ML INJ IV PRN (22:42)
[2021-10-27] MEDS ORDERED: ACETAMINOPHEN 325 MG TAB PO PRN (22:42)
--- NOTE | 2021-10-27 22:51 | History and Physical Report ---
History of Present Illness Date of examination: 10/27/21 Date of admission: 10/27/21 Chief complaint: Palpitation Arrhythmia Shortness of breath History of present illness: 81-year-old male with a past medical history of paroxysmal atrial fibrillation, hypertension, pulmonary embolism and chronic leg edema presents to the hospital complaints of intermittent palpitations, shortness of breath, chest pain x1 week. Patient has been noncompliant with his medication. chest pain is described as a intermittent pressure. Symptoms worse with exertion. Patient was seen by his transport truck driver in the office and found to be in A. fib with RVR and therefore was sent to the hospital. Patient states he has been noncompliant with his medications for the past 2 to 3 days because he is "hard headed" he is also stressed because he is taking care of his demented at home. Daughter has clarified that patient has been off medications at least for 1 year and is chronically noncompliant. In the emergency room initial cardiac enzyme is negative troponin is 0.010, chest x-ray shows cardiac enlargement with congestion of the pulmonary vasculature suggestive of CHF. So going to admit the patient we will put the patient on amiodarone and Xarelto we order echocardiogram we also consult cardiology for evaluation and put the patient on Lasix Past History Past Medical History: atrial fib, arthritis, DVT, hypertension, other (Pulmonary embolism, chronic leg edema) Past Surgical History: No surgical history Social history: no significant social history Family history: hypertension Medications and Allergies Allergies Allergy/AdvReac Type Severity Reaction Status Date / Time No Known Allergies Allergy Verified 08/04/20 07:06 Home Medications Medication Instructions Recorded Confirmed Last Taken Type Furosemide [Lasix] 20 mg PO DAILY 12/27/17 08/04/20 08/04/20 18:56 History 15 Losartan [Cozaar] 100 mg PO DAILY 12/27/17 10/27/21 12/26/17 History 100 mg Potassium Chloride [Klor-Con 10 meq PO DAILY 12/27/17 10/27/21 12/26/17 History Sprinkle] 10 meq Sertraline [Zoloft] 100 mg PO DAILY 12/27/17 10/27/21 12/26/17 History 100 mg Acetaminophen [Acetaminophen TAB] 650 mg PO Q4H PRN tablet 08/08/20 Unknown Rx Amiodarone [Cordarone 200 MG TAB] 200 mg PO BID #60 tab 08/08/20 Unknown Rx Aspirin 325 mg PO QDAY #30 tablet 08/08/20 Unknown Rx AtorvaSTATin [Lipitor] 40 mg PO QHS #30 tablet 08/08/20 Unknown Rx Magnesium Hydroxide [Milk of 30 ml PO Q4H PRN oral.liqd 08/08/20 10/27/21 Unknown Rx Magnesia] Rivaroxaban [Xarelto] 15 mg PO BID #30 tablet 08/08/20 10/27/21 Unknown Rx Rivaroxaban [Xarelto] 15 mg PO QDAY #30 08/08/20 10/27/21 Unknown Rx hydrALAZINE 25 mg PO BID #60 08/08/20 Unknown Rx Active Meds: Active Medications Acetaminophen (Acetaminophen 325 Mg Tab) 650 mg PO Q6H PRN PRN Reason: Pain, Mild (1-3) Amiodarone HCl (Amiodarone 200 Mg Tab) 200 mg PO BID CHEMO Aspirin (Aspirin Ec 325 Mg Tab) 325 mg PO QDAY CHEMO Aspirin (Aspirin 325 Mg Tab) 325 mg PO QDAY CHEMO Atorvastatin Calcium (Atorvastatin 40 Mg Tab) 40 mg PO QHS CHEMO Furosemide (Furosemide 40 Mg/4 Ml Inj) 40 mg IV QDAY CHEMO Heparin Sodium (Porcine) (Heparin 5,000 Unit/1 Ml Vial) 5,000 unit SUB-Q Q12HR CHEMO Miscellaneous Medication (Hydralazine) 25 mg PO BID CHEMO Miscellaneous Medication (Losartan [Cozaar]) 100 mg PO DAILY [facility] Miscellaneous Medication (Rivaroxaban) 15 mg PO BID CHEMO Morphine Sulfate (Morphine 4 Mg/1 Ml Inj) 2 mg IV Q5MIN PRN PRN Reason: Chest Pain unrelieved by NTG Nitroglycerin (Nitroglycerin 0.4 Mg Tab Subl) 0.4 mg SL Q5M PRN PRN Reason: Chest Pain Pantoprazole Sodium (Pantoprazole 40 Mg Tab) 40 mg PO QDAY CHEMO Sertraline HCl (Sertraline 100 Mg Tab) 100 mg PO DAILY CHEMO Sodium Chloride (Sodium Chloride 0.9% 10 Ml Flush Syringe) 10 ml IV PRN PRN PRN Reason: LINE FLUSH Tramadol HCl (Tramadol 50 Mg Tab) 50 mg PO Q6H PRN PRN Reason: Pain, Moderate (4-6) Review of Systems All systems: negative Cardiovascular: palpitations, rapid/irregular heart beat, edema, shortness of breath, dyspnea on exertion Respiratory: shortness of breath, dyspnea on exertion Exam - Constitutional Vitals: Temp Pulse Resp BP Pulse Ox 98.3 F 122 H 16 177/92 100 10/27/21 18:08 10/27/21 18:08 10/27/21 18:08 10/27/21 18:08 10/27/21 18:47 General appearance: Present: no acute distress, well-nourished - EENT Eyes: Present: PERRL ENT: hearing intact, clear oral mucosa - Neck Neck: Present: supple, normal ROM - Respiratory Respiratory effort: normal Respiratory: bilateral: rales - Cardiovascular Rhythm: irregularly irregular Heart Sounds: Present: S1 & S2. Absent: rub, click - Extremities Extremities: pulses symmetrical, No edema Extremity abnormal: edema Peripheral Pulses: within normal limits - Abdominal General gastrointestinal: Present: soft, non-tender, non-distended, normal bowel sounds Male genitourinary: Present: normal - Integumentary Integumentary: Present: clear, warm, dry - Musculoskeletal Musculoskeletal: gait normal, strength equal bilaterally - Psychiatric Psychiatric: appropriate mood/affect, intact judgment & insight - Neurologic Neurologic: CNII-XII intact, moves all extremities HEART Score - HEART Score Troponin: Troponin T < 0.010 ng/mL (0.00-0.029) 10/27/21 19:59 Results - Labs CBC & Chem 7: 10/27/21 18:38 10/27/21 19:59 Labs: Laboratory Last Values WBC 4.7 K/mm3 (4.5-11.0) 10/27/21 18:38 RBC 5.07 M/mm3 (3.65-5.03) H 10/27/21 18:38 Hgb 12.1 gm/dl (11.8-15.2) 10/27/21 18:38 Hct 39.3 % (35.5-45.6) 10/27/21 18:38 MCV 78 fl (84-94) L 10/27/21 18:38 MCH 24 pg (28-32) L 10/27/21 18:38 MCHC 31 % (32-34) L 10/27/21 18:38 RDW 16.1 % (13.2-15.2) H 10/27/21 18:38 Plt Count 169 K/mm3 (140-440) 10/27/21 18:38 Lymph % (Auto) 19.8 % (13.4-35.0) 10/27/21 18:38 [place] % (Auto) 9.6 % (0.0-7.3) H 10/27/21 18:38 Eos % (Auto) 1.2 % (0.0-4.3) 10/27/21 18:38 Baso % (Auto) 1.0 % (0.0-1.8) 10/27/21 18:38 Lymph # (Auto) 0.9 K/mm3 (1.2-5.4) L 10/27/21 18:38 [place] # (Auto) 0.5 K/mm3 (0.0-0.8) 10/27/21 18:38 Eos # (Auto) 0.1 K/mm3 (0.0-0.4) 10/27/21 18:38 Baso # (Auto) 0.0 K/mm3 (0.0-0.1) 10/27/21 18:38 Seg Neutrophils % 68.4 % (40.0-70.0) 10/27/21 18:38 Seg Neutrophils # 3.2 K/mm3 (1.8-7.7) 10/27/21 18:38 PT 13.7 Sec. (12.2-14.9) 10/27/21 18:38 INR 0.95 (0.87-1.13) 10/27/21 18:38 APTT 27.7 Sec. (24.2-36.6) 10/27/21 18:38 Sodium 141 mmol/L (137-145) 10/27/21 19:59 Potassium TNR 10/27/21 18:38 Chloride TNR 10/27/21 18:38 Carbon Dioxide 25 mmol/L (22-30) 10/27/21 19:59 Anion Gap TNR 10/27/21 18:38 BUN 16 mg/dL (9-20) 10/27/21 19:59 Creatinine 1.3 mg/dL (0.8-1.3) 10/27/21 19:59 Estimated GFR > 60 ml/min 10/27/21 19:59 BUN/Creatinine Ratio 12 % 10/27/21 19:59 Glucose 115 mg/dL (75-100) H 10/27/21 19:59 Calcium 10.5 mg/dL (8.4-10.2) H 10/27/21 19:59 Total Bilirubin 0.70 mg/dL (0.1-1.2) 10/27/21 19:59 AST 16 units/L (5-40) 10/27/21 19:59 ALT 8 units/L (7-56) 10/27/21 19:59 Alkaline Phosphatase 120 units/L (35-129) 10/27/21 19:59 Troponin T < 0.010 ng/mL (0.00-0.029) 10/27/21 19:59 NT-Pro-B Natriuret Pep 229.5 pg/mL (0-900) 10/27/21 18:54 Total Protein 6.9 g/dL (6.3-8.2) 10/27/21 19:59 Albumin 4.2 g/dL (3.9-5) 10/27/21 19:59 Albumin/Globulin Ratio 1.6 % 10/27/21 19:59 TSH 2.320 mlU/mL (0.270-4.200) 10/27/21 18:38 Free T4 1.16 ng/dL (0.76-1.46) 10/27/21 18:38 - Imaging and Cardiology Chest x-ray: report reviewed Assessment and Plan VTE prophylaxis?: Chemical Plan of care discussed with patient/family: Yes - Patient Problems (1) Paroxysmal A-fib Current Visit: Yes Status: Acute Plan to address problem: Admit the patient to the medical telemetry. Amiodarone 200 mg p.o. twice daily, aspirin 325 mg p.o. daily. Xarelto 15 mg p.o. twice daily. We do the serial cardiac enzymes. Echocardiogram. Cardiology evaluation (2) Congestive heart failure Current Visit: Yes Status: Chronic Plan to address problem: Fluid restriction. Lasix 40 mg IV daily. Maintain input output. Daily weight. Echocardiogram. Cardiology evaluation (3) Noncompliance with medication regimen Current Visit: Yes Status: Acute Plan to address problem: Counseled the patient regarding taking medication regularly. (4) Pulmonary embolism Current Visit: No Status: Acute Plan to address problem: Oxygen via nasal cannula 3 to per minute. DuoNeb and nebulizer every 4 hours. Xarelto 15 mg p.o. twice daily (5) BPH (benign prostatic hyperplasia) Current Visit: No Status: Chronic Plan to address problem: Stable. We will continue the home medication (6) HTN (hypertension) Current Visit: No Status: Chronic Plan to address problem: Losartan 100 mg p.o. daily. Lasix 40 mg IV daily. Amiodarone 200 mg p.o. twice daily (7) DVT prophylaxis Current Visit: No Status: Acute Plan to address problem: Xarelto 15 mg p.o. twice daily for DVT prophylaxis. Protonix 40 mg p.o. daily for GI prophylaxis. Patient is a full code
[2021-10-28 05:19] LABS: Basophils # (Auto) 0.1 K/mm3 (0.0-0.1); Basophils % (Auto) 1.1 % (0.0-1.8); Eosinophils # (Auto) 0.1 K/mm3 (0.0-0.4); Eosinophils % (Auto) 1.8 % (0.0-4.3); Lymphocytes # (Auto) 1.5 K/mm3 (1.2-5.4); Lymphocytes % (Auto) 27.2 % (13.4-35.0); Mean Corpuscular HGB Conc 31 % (32-34); Mean Corpuscular Volume 75 fl (84-94); Monocytes # (Auto) 0.7 K/mm3 (0.0-0.8); Monocytes % (Auto) 12.9 % (0.0-7.3); Platelet Count 145 K/mm3 (140-440); Red Blood Count 5.24 M/mm3 (3.65-5.03); Red Cell Distribution Width 16.2 % (13.2-15.2)
[2021-10-28 05:38] LABS: BUN/Creatinine Ratio 13; Blood Urea Nitrogen 15 mg/dL (9-20); Calcium 10.8 mg/dL (8.4-10.2); Hemolysis Index 1
[2021-10-28 05:49] LABS: Hematocrit 39.1 % (35.5-45.6)
[2021-10-28] MEDS: RIVAROXABAN 20 MG TAB PO SCH (08:19)
--- NOTE | 2021-10-28 09:00 | Progress Note ---
Assessment and Plan Assessment and plan: VTE prophylaxis?: Chemical Plan of care discussed with patient/family: Yes --Paroxysmal A-fib Current Visit: Yes Status: Acute Continue amiodarone 200 mg p.o. twice daily, discontinue aspirin 325 mg p.o. daily. Continue Xarelto . Echo for LV function ejection fraction, follow cardiology evaluation and recommendations --Congestive heart failure/ LVEF 40-45% Current Visit: Yes Status: Chronic Fluid restriction. Lasix 40 mg IV daily. Maintain input output. Daily weight. Echocardiogram. Cardiology evaluation --Noncompliance with medication regimen Current Visit: Yes Status: Acute Counseled the patient regarding taking medication regularly. --Pulmonary embolism Current Visit: No Status: Acute Oxygen via nasal cannula 3 to per minute. DuoNeb and nebulizer every 4 hours. X arelto 15 mg p.o. twice daily --History of BPH (benign prostatic hyperplasia) Current Visit: No Status: Chronic Stable. We will continue the home medication --HTN (hypertension) Current Visit: No Status: Chronic Losartan 100 mg p.o. daily. Lasix 40 mg IV daily. Amiodarone 200 mg p.o. twice daily --DVT prophylaxis Current Visit: No Status: Acute Xarelto 15 mg p.o. twice daily for DVT prophylaxis. Protonix 40 mg p.o. daily for GI prophylaxis. Patient is a full code Follow cardiology evaluation recommendations We will closely monitor the patient and adjust the management as needed Plan of care reviewed with the patient and his nurse Closely monitor the patient and adjust the management as needed Plan of care reviewed with the patient and the nurse History Interval history: I have seen and examined the patient at the bedside Patient's chart and medications reviewed Patient was admitted with A. fib with rapid ventricular rate Hospitalist Physical - Constitutional Vitals: Temp Pulse Resp BP Pulse Ox 98.3 F 57 L 18 139/73 99 10/28/21 08:01 10/28/21 08:01 10/28/21 03:50 10/28/21 08:01 10/28/21 08:01 General appearance: Present: no acute distress, well-nourished - EENT Eyes: Present: PERRL, EOM intact - Neck Neck: Present: supple, normal ROM - Respiratory Respiratory effort: normal Respiratory: bilateral: diminished, negative: rales, rhonchi, wheezing - Cardiovascular Rhythm: regular Heart Sounds: Present: S1 & S2 - Extremities Extremities: no ischemia, No edema - Abdominal General gastrointestinal: soft, non-tender, non-distended, normal bowel sounds - Integumentary Integumentary: Present: clear, warm - Psychiatric Psychiatric: appropriate mood/affect, cooperative - Neurologic Neurologic: CNII-XII intact, moves all extremities HEART Score - HEART Score Troponin: Troponin T 0.011 ng/mL (0.00-0.029) 10/28/21 04:53 Results - Labs CBC & Chem 7: 10/28/21 04:53 10/28/21 04:53 Labs: Laboratory Last Values WBC 5.4 K/mm3 (4.5-11.0) 10/28/21 04:53 RBC 5.24 M/mm3 (3.65-5.03) H 10/28/21 04:53 Hgb 12.0 gm/dl (11.8-15.2) 10/28/21 04:53 Hct 39.1 % (35.5-45.6) 10/28/21 04:53 MCV 75 fl (84-94) L 10/28/21 04:53 MCH 23 pg (28-32) L 10/28/21 04:53 MCHC 31 % (32-34) L 10/28/21 04:53 RDW 16.2 % (13.2-15.2) H 10/28/21 04:53 Plt Count 145 K/mm3 (140-440) 10/28/21 04:53 Lymph % (Auto) 27.2 % (13.4-35.0) 10/28/21 04:53 [place] % (Auto) 12.9 % (0.0-7.3) H 10/28/21 04:53 Eos % (Auto) 1.8 % (0.0-4.3) 10/28/21 04:53 Baso % (Auto) 1.1 % (0.0-1.8) 10/28/21 04:53 Lymph # (Auto) 1.5 K/mm3 (1.2-5.4) 10/28/21 04:53 [place] # (Auto) 0.7 K/mm3 (0.0-0.8) 10/28/21 04:53 Eos # (Auto) 0.1 K/mm3 (0.0-0.4) 10/28/21 04:53 Baso # (Auto) 0.1 K/mm3 (0.0-0.1) 10/28/21 04:53 Seg Neutrophils % 57.0 % (40.0-70.0) 10/28/21 04:53 Seg Neutrophils # 3.1 K/mm3 (1.8-7.7) 10/28/21 04:53 PT 13.7 Sec. (12.2-14.9) 10/27/21 18:38 INR 0.95 (0.87-1.13) 10/27/21 18:38 APTT 27.7 Sec. (24.2-36.6) 10/27/21 18:38 Sodium 143 mmol/L (137-145) 10/28/21 04:53 Potassium 3.7 mmol/L (3.6-5.0) 10/28/21 04:53 Chloride 105.0 mmol/L (98-107) 10/28/21 04:53 Carbon Dioxide 23 mmol/L (22-30) 10/28/21 04:53 Anion Gap 19 mmol/L 10/28/21 04:53 BUN 15 mg/dL (9-20) 10/28/21 04:53 Creatinine 1.2 mg/dL (0.8-1.3) 10/28/21 04:53 Estimated GFR > 60 ml/min 10/28/21 04:53 BUN/Creatinine Ratio 13 % 10/28/21 04:53 Glucose 107 mg/dL (75-100) H 10/28/21 04:53 Calcium 10.8 mg/dL (8.4-10.2) H 10/28/21 04:53 Total Bilirubin 0.70 mg/dL (0.1-1.2) 10/27/21 19:59 AST 16 units/L (5-40) 10/27/21 19:59 ALT 8 units/L (7-56) 10/27/21 19:59 Alkaline Phosphatase 120 units/L (35-129) 10/27/21 19:59 Troponin T 0.011 ng/mL (0.00-0.029) 10/28/21 04:53 NT-Pro-B Natriuret Pep 229.5 pg/mL (0-900) 10/27/21 18:54 Total Protein 6.9 g/dL (6.3-8.2) 10/27/21 19:59 Albumin 4.2 g/dL (3.9-5) 10/27/21 19:59 Albumin/Globulin Ratio 1.6 % 10/27/21 19:59 TSH 2.320 mlU/mL (0.270-4.200) 10/27/21 18:38 Free T4 1.16 ng/dL (0.76-1.46) 10/27/21 18:38 Lorenzo/IV: Voiding Method Urinal Active Medications - Current Medications Current Medications: Generic Name Dose Route Start Last Admin Trade Name Freq PRN Reason Stop Dose Admin Acetaminophen 650 mg 10/27/21 22:42 Acetaminophen 325 Mg Tab PO Q6H PRN Pain, Mild (1-3) Amiodarone HCl 200 mg 10/28/21 10:00 Amiodarone 200 Mg Tab PO BID [facility] Aspirin 325 mg 10/28/21 10:00 Aspirin 325 Mg Tab PO QDAY [facility] Atorvastatin Calcium 40 mg 10/28/21 22:00 Atorvastatin 40 Mg Tab PO QHS [facility] Furosemide 40 mg 10/28/21 10:00 Furosemide 40 Mg/4 Ml Inj IV QDAY [facility] Hydralazine HCl 25 mg 10/28/21 10:00 Hydralazine 25 Mg Tab PO BID [facility] Losartan Potassium 100 mg 10/28/21 10:00 Losartan 50 Mg Tab PO DAILY [facility] Morphine Sulfate 2 mg 10/27/21 22:42 Morphine 4 Mg/1 Ml Inj IV Q5MIN PRN Chest Pain unrelieved by NTG Nitroglycerin 0.4 mg 10/27/21 22:42 Nitroglycerin 0.4 Mg Tab Subl SL Q5M PRN Chest Pain Pantoprazole Sodium 40 mg 10/28/21 10:00 Pantoprazole 40 Mg Tab PO QDAY [facility] Rivaroxaban 20 mg 10/28/21 08:00 10/28/21 08:19 Rivaroxaban 20 Mg Tab PO 20 mg QDDIAB [facility] Administration Sertraline HCl 100 mg 10/28/21 10:00 Sertraline 100 Mg Tab PO DAILY [facility] Sodium Chloride 10 ml 10/27/21 22:42 Sodium Chloride 0.9% 10 Ml Flush Syringe IV PRN PRN LINE FLUSH Tramadol HCl 50 mg 10/27/21 22:42 Tramadol 50 Mg Tab PO Q6H PRN Pain, Moderate (4-6)
[2021-10-28] MEDS ORDERED: NON-FORMULARY EACH (Rivaroxaban 15 MG Tablet) PO SCH (10:00)
[2021-10-28] MEDS ORDERED: FUROSEMIDE 40 MG/4 ML INJ IV SCH (10:00)
[2021-10-28] MEDS ORDERED: NON-FORMULARY EACH (Losartan [Cozaar] 100 MG Tablet) PO SCH (10:00)
[2021-10-28] MEDS ORDERED: ASPIRIN EC 325 MG TAB PO SCH (10:00)
[2021-10-28] MEDS ORDERED: NON-FORMULARY EACH (Hydralazine 25 MG) PO SCH (10:00)
[2021-10-28] MEDS ORDERED: ASPIRIN 325 MG TAB PO SCH (10:00)
[2021-10-28] MEDS ORDERED: HEPARIN 5,000 UNIT/1 ML VIAL SUB-Q SCH (10:00)
[2021-10-28] MEDS: LOSARTAN 50 MG TAB PO SCH (10:27)
[2021-10-28] MEDS: SERTRALINE 100 MG TAB PO SCH (10:28)
[2021-10-28] MEDS: hydrALAZINE 25 MG TAB PO SCH ×2 (10:29→21:03)
[2021-10-28] MEDS: AMIODARONE 200 MG TAB PO SCH ×2 (10:29→21:03)
[2021-10-28] MEDS: PANTOPRAZOLE 40 MG TAB PO SCH (10:30)
--- NOTE | 2021-10-28 14:27 | Consultation ---
History of Present Illness Consult date: 10/28/21 Consult reason: congestive heart failure, shortness of breath History of present illness: 81-year-old man with a history of mild nonobstructive cardiomyopathy, chronic lower extremity edema, hypertension and paroxysmal atrial fibrillation. For atrial fibrillation, he is on rhythm control therapy with amiodarone and oral anticoagulation with Xarelto. He presented to my office on a routine visit yesterday, where we found him to have a recurrence of rapid atrial fibrillation. As a result, he appeared moderately dyspneic, and also with 1-2+ bilateral edema. We recommended hospitalization for management of rapid atrial fibril lation and volume overload. On his presentation to the hospital, his initial ECG was rapid atrial f ibrillation, but overnight, with in-hospital therapy, he has reverted to a stable sinus rhythm. As a result, he looks and feels better today, shortness of breath has improved, no palpitations and no chest pain. An echocardiogram done today shows persistence of his mild cardiomyopathy with left ventricular ejection fraction 40 to 45%, unchanged from his historical baseline. There was aortic valve sclerosis, no significant aortic stenosis, but mild aortic regurgitation. There was trace mitral regurgitation. There was at least mild tricuspid regurgitation, and moderate pulmonary hypertension with pulmonary artery systolic pressures of 45-50. Past History Past Medical History: atrial fib, arthritis, DVT, heart failure, hypertension, other (Pulmonary embolism, chronic leg edema) Past Surgical History: No surgical history Social history: no significant social history Family history: hypertension Medications and Allergies Allergies Allergy/AdvReac Type Severity Reaction Status Date / Time No Known Allergies Allergy Verified 08/04/20 07:06 Home Medications Medication Instructions Recorded Confirmed Last Taken Type Furosemide [Lasix] 20 mg PO DAILY 12/27/17 08/04/20 08/04/20 18:56 History 15 Losartan [Cozaar] 100 mg PO DAILY 12/27/17 10/27/21 12/26/17 History 100 mg Potassium Chloride [Klor-Con 10 meq PO DAILY 12/27/17 10/27/21 12/26/17 History Sprinkle] 10 meq Sertraline [Zoloft] 100 mg PO DAILY 12/27/17 10/27/21 12/26/17 History 100 mg Acetaminophen [Acetaminophen TAB] 650 mg PO Q4H PRN tablet 08/08/20 Unknown Rx Amiodarone [Cordarone 200 MG TAB] 200 mg PO BID #60 tab 08/08/20 Unknown Rx Aspirin 325 mg PO QDAY #30 tablet 08/08/20 Unknown Rx AtorvaSTATin [Lipitor] 40 mg PO QHS #30 tablet 08/08/20 Unknown Rx Magnesium Hydroxide [Milk of 30 ml PO Q4H PRN oral.liqd 08/08/20 10/27/21 Unknown Rx Magnesia] Rivaroxaban [Xarelto] 15 mg PO BID #30 tablet 08/08/20 10/27/21 Unknown Rx Rivaroxaban [Xarelto] 15 mg PO QDAY #30 08/08/20 10/27/21 Unknown Rx hydrALAZINE 25 mg PO BID #60 08/08/20 Unknown Rx Active Meds: Active Medications Acetaminophen (Acetaminophen 325 Mg Tab) 650 mg PO Q6H PRN PRN Reason: Pain, Mild (1-3) Amiodarone HCl (Amiodarone 200 Mg Tab) 200 mg PO BID [facility] Last Admin: 10/28/21 10:29 Dose: 200 mg Aspirin (Aspirin 325 Mg Tab) 325 mg PO QDAY [facility] Last Admin: 10/28/21 10:29 Dose: 325 mg Atorvastatin Calcium (Atorvastatin 40 Mg Tab) 40 mg PO QHS [facility] Furosemide (Furosemide 40 Mg/4 Ml Inj) 40 mg IV QDAY [facility] Last Admin: 10/28/21 10:27 Dose: 40 mg Hydralazine HCl (Hydralazine 25 Mg Tab) 25 mg PO BID [facility] Last Admin: 10/28/21 10:29 Dose: 25 mg Losartan Potassium (Losartan 50 Mg Tab) 100 mg PO DAILY [facility] Last Admin: 10/28/21 10:27 Dose: 100 mg Morphine Sulfate (Morphine 4 Mg/1 Ml Inj) 2 mg IV Q5MIN PRN PRN Reason: Chest Pain unrelieved by NTG Nitroglycerin (Nitroglycerin 0.4 Mg Tab Subl) 0.4 mg SL Q5M PRN PRN Reason: Chest Pain Pantoprazole Sodium (Pantoprazole 40 Mg Tab) 40 mg PO QDAY [facility] Last Admin: 10/28/21 10:30 Dose: 40 mg Rivaroxaban (Rivaroxaban 20 Mg Tab) 20 mg PO QDDIAB [facility] Last Admin: 10/28/21 08:19 Dose: 20 mg Sertraline HCl (Sertraline 100 Mg Tab) 100 mg PO DAILY [facility] Last Admin: 10/28/21 10:28 Dose: 100 mg Sodium Chloride (Sodium Chloride 0.9% 10 Ml Flush Syringe) 10 ml IV PRN PRN PRN Reason: LINE FLUSH Tramadol HCl (Tramadol 50 Mg Tab) 50 mg PO Q6H PRN PRN Reason: Pain, Moderate (4-6) Review of Systems Cardiovascular: orthopnea, palpitations, rapid/irregular heart beat, edema, shortness of breath, no chest pain, no syncope, no lightheadedness Physical Examination Vital Signs Temp Pulse Resp BP Pulse Ox 98.3 F 122 H 16 177/92 98 10/27/21 18:08 10/27/21 18:08 10/27/21 18:08 10/27/21 18:08 10/27/21 18:08 General appearance: no acute distress HEENT: Positive: PERRL Neck: Positive: neck supple Cardiac: Positive: Reg Rate and Rhythm Lungs: Positive: Decreased Breath Sounds Neuro: Positive: Grossly Intact Abdomen: Positive: Soft Male genitourinary: Positive: deferred Skin: Positive: Clear Extremities: Present: +1 Edema Results 10/28/21 04:53 10/28/21 04:53 Cardiac Enzymes 10/27/21 10/27/21 Range/Units 18:38 19:59 AST TNR 16 Coagulation 10/27/21 Range/Units 18:38 PT 13.7 (12.2-14.9) Sec. INR 0.95 (0.87-1.13) APTT 27.7 (24.2-36.6) Sec. CBC 10/27/21 10/28/21 Range/Units 18:38 04:53 WBC 4.7 5.4 (4.5-11.0) K/mm3 RBC 5.07 H 5.24 H (3.65-5.03) M/mm3 Hgb 12.1 12.0 (11.8-15.2) gm/dl Hct 39.3 39.1 (35.5-45.6) % Plt Count 169 145 (140-440) K/mm3 Lymph # (Auto) 0.9 L 1.5 (1.2-5.4) K/mm3 [place] # (Auto) 0.5 0.7 (0.0-0.8) K/mm3 Eos # (Auto) 0.1 0.1 (0.0-0.4) K/mm3 Baso # (Auto) 0.0 0.1 (0.0-0.1) K/mm3 Comprehensive Metabolic Panel 10/27/21 10/27/21 10/28/21 Range/Units 18:38 19:59 04:53 Sodium TNR 141 143 Potassium TNR 3.7 Chloride TNR 105.0 Carbon Dioxide TNR 25 23 BUN TNR 16 15 Creatinine TNR 1.3 1.2 Glucose TNR 115 H 107 H Calcium TNR 10.5 H 10.8 H AST TNR 16 ALT TNR 8 Alkaline Phosphatase TNR 120 Total Protein TNR 6.9 Albumin TNR 4.2 EKG interpretations - Telemetry EKG Rhythm: Atrial Fibrillation (With rapid ventricular rate and nonspecific ST anterior changes) Assessment and Plan - Patient Problems (1) Volume overload Current Visit: Yes Status: Acute Plan to address problem: Patient has a history of mild nonischemic cardiomyopathy, historical ejection fraction 40 to 45%. Presented with symptoms of rapid atrial fibrillation and mild volume overload. Looks and feels better today with inpatient treatment. Echocardiogram shows left ventricular systolic function unchanged, at 40 to 45%. (2) Paroxysmal A-fib Current Visit: Yes Status: Acute Plan to address problem: Patient presented with a recurrence of rapid atrial fibrillation, which is likely etiology of his marked dyspnea on presentation. He has reverted to a stable sinus rhythm on medical therapy, symptoms have improved, will continue rhythm control therapy and oral anticoagulation with Xarelto.
--- NOTE | 2021-10-29 09:29 | Progress Note ---
Assessment and Plan Assessment and plan: --Paroxysmal A-fib/rate controlled Current Visit: Yes Status: Acute Continue amiodarone 200 mg p.o. twice daily, discontinue aspirin 325 mg p.o. daily. Continue Xarelto . Echo for LV function ejection fraction, follow cardiology evaluation and recommendations --Congestive heart failure/ LVEF 40-45% Current Visit: Yes Status: Chronic Fluid restriction. Lasix 40 mg IV daily. Maintain input output. Daily weight. Echocardiogram. Cardiology evaluation --Noncompliance with medication regimen Current Visit: Yes Status: Acute Counseled the patient regarding taking medication regularly. --Pulmonary embolism Current Visit: No Status: Acute Oxygen via nasal cannula 3 to per minute. DuoNeb and nebulizer every 4 hours. X arelto 15 mg p.o. twice daily --History of BPH (benign prostatic hyperplasia) Current Visit: No Status: Chronic Stable. We will continue the home medication --HTN (hypertension) Current Visit: No Status: Chronic Losartan 100 mg p.o. daily. Lasix 40 mg IV daily. Amiodarone 200 mg p.o. twice daily --DVT prophylaxis Current Visit: No Status: Acute Xarelto 15 mg p.o. twice daily for DVT prophylaxis. Protonix 40 mg p.o. daily for GI prophylaxis. Patient is a full code Follow cardiology evaluation recommendations We will closely monitor the patient and adjust the management as needed Plan of care reviewed with the patient and his nurse Closely monitor the patient and adjust the management as needed Plan of care reviewed with the patient and the nurse 10/29; continue current antifailure medications Ambulate as tolerated, follow clinically Possible discharge home tomorrow if stable and cleared by cardiology History Interval history: I have seen and examined the patient at the bedside Patient's chart and medications reviewed Patient feels better anxious to go home Denies chest pain however has mild shortness of breath Vital signs reviewed Hospitalist Physical - Constitutional Vitals: Temp Pulse Resp BP Pulse Ox 98.2 F 62 18 158/75 99 10/29/21 07:34 10/29/21 07:34 10/29/21 07:34 10/29/21 07:34 10/29/21 08:04 General appearance: Present: no acute distress, well-nourished - EENT Eyes: Present: PERRL, EOM intact - Neck Neck: Present: supple, normal ROM - Respiratory Respiratory effort: normal Respiratory: bilateral: diminished, wheezing, negative: rales, rhonchi - Cardiovascular Rhythm: regular Heart Sounds: Present: S1 & S2 - Extremities Extremities: no ischemia, No edema - Abdominal General gastrointestinal: soft, non-tender, non-distended, normal bowel sounds - Integumentary Integumentary: Present: clear, warm - Psychiatric Psychiatric: appropriate mood/affect, cooperative - Neurologic Neurologic: moves all extremities HEART Score - HEART Score Troponin: Troponin T 0.011 ng/mL (0.00-0.029) 10/28/21 04:53 Results - Labs CBC & Chem 7: 10/28/21 04:53 10/28/21 04:53 Labs: Laboratory Last Values WBC 5.4 K/mm3 (4.5-11.0) 10/28/21 04:53 RBC 5.24 M/mm3 (3.65-5.03) H 10/28/21 04:53 Hgb 12.0 gm/dl (11.8-15.2) 10/28/21 04:53 Hct 39.1 % (35.5-45.6) 10/28/21 04:53 MCV 75 fl (84-94) L 10/28/21 04:53 MCH 23 pg (28-32) L 10/28/21 04:53 MCHC 31 % (32-34) L 10/28/21 04:53 RDW 16.2 % (13.2-15.2) H 10/28/21 04:53 Plt Count 145 K/mm3 (140-440) 10/28/21 04:53 Lymph % (Auto) 27.2 % (13.4-35.0) 10/28/21 04:53 [place] % (Auto) 12.9 % (0.0-7.3) H 10/28/21 04:53 Eos % (Auto) 1.8 % (0.0-4.3) 10/28/21 04:53 Baso % (Auto) 1.1 % (0.0-1.8) 10/28/21 04:53 Lymph # (Auto) 1.5 K/mm3 (1.2-5.4) 10/28/21 04:53 [place] # (Auto) 0.7 K/mm3 (0.0-0.8) 10/28/21 04:53 Eos # (Auto) 0.1 K/mm3 (0.0-0.4) 10/28/21 04:53 Baso # (Auto) 0.1 K/mm3 (0.0-0.1) 10/28/21 04:53 Seg Neutrophils % 57.0 % (40.0-70.0) 10/28/21 04:53 Seg Neutrophils # 3.1 K/mm3 (1.8-7.7) 10/28/21 04:53 PT 13.7 Sec. (12.2-14.9) 10/27/21 18:38 INR 0.95 (0.87-1.13) 10/27/21 18:38 APTT 27.7 Sec. (24.2-36.6) 10/27/21 18:38 Sodium 143 mmol/L (137-145) 10/28/21 04:53 Potassium 3.7 mmol/L (3.6-5.0) 10/28/21 04:53 Chloride 105.0 mmol/L (98-107) 10/28/21 04:53 Carbon Dioxide 23 mmol/L (22-30) 10/28/21 04:53 Anion Gap 19 mmol/L 10/28/21 04:53 BUN 15 mg/dL (9-20) 10/28/21 04:53 Creatinine 1.2 mg/dL (0.8-1.3) 10/28/21 04:53 Estimated GFR > 60 ml/min 10/28/21 04:53 BUN/Creatinine Ratio 13 % 10/28/21 04:53 Glucose 107 mg/dL (75-100) H 10/28/21 04:53 POC Glucose 132 mg/dL (70-105) H 10/28/21 20:55 Calcium 10.8 mg/dL (8.4-10.2) H 10/28/21 04:53 Total Bilirubin 0.70 mg/dL (0.1-1.2) 10/27/21 19:59 AST 16 units/L (5-40) 10/27/21 19:59 ALT 8 units/L (7-56) 10/27/21 19:59 Alkaline Phosphatase 120 units/L (35-129) 10/27/21 19:59 Troponin T 0.011 ng/mL (0.00-0.029) 10/28/21 04:53 NT-Pro-B Natriuret Pep 229.5 pg/mL (0-900) 10/27/21 18:54 Total Protein 6.9 g/dL (6.3-8.2) 10/27/21 19:59 Albumin 4.2 g/dL (3.9-5) 10/27/21 19:59 Albumin/Globulin Ratio 1.6 % 10/27/21 19:59 TSH 2.320 mlU/mL (0.270-4.200) 10/27/21 18:38 Free T4 1.16 ng/dL (0.76-1.46) 10/27/21 18:38 Lorenzo/IV: Voiding Method Urinal Active Medications - Current Medications Current Medications: Generic Name Dose Route Start Last Admin Trade Name Freq PRN Reason Stop Dose Admin Acetaminophen 650 mg 10/27/21 22:42 Acetaminophen 325 Mg Tab PO Q6H PRN Pain, Mild (1-3) Amiodarone HCl 200 mg 10/28/21 10:00 10/28/21 21:03 Amiodarone 200 Mg Tab PO 200 mg BID CHEMO Administration Atorvastatin Calcium 40 mg 10/28/21 22:00 10/28/21 21:03 Atorvastatin 40 Mg Tab PO 40 mg QHS CHEMO Administration Furosemide 40 mg 10/28/21 10:00 10/28/21 10:27 Furosemide 40 Mg/4 Ml Inj IV 40 mg QDAY CHEMO Administration Hydralazine HCl 25 mg 10/28/21 10:00 10/28/21 21:03 Hydralazine 25 Mg Tab PO 25 mg BID CHEMO Administration Losartan Potassium 100 mg 10/28/21 10:00 10/28/21 10:27 Losartan 50 Mg Tab PO 100 mg DAILY CHEMO Administration Morphine Sulfate 2 mg 10/27/21 22:42 Morphine 4 Mg/1 Ml Inj IV Q5MIN PRN Chest Pain unrelieved by NTG Nitroglycerin 0.4 mg 10/27/21 22:42 Nitroglycerin 0.4 Mg Tab Subl SL Q5M PRN Chest Pain Pantoprazole Sodium 40 mg 10/28/21 10:00 10/28/21 10:30 Pantoprazole 40 Mg Tab PO 40 mg QDAY CHEMO Administration Rivaroxaban 20 mg 10/28/21 08:00 10/28/21 08:19 Rivaroxaban 20 Mg Tab PO 20 mg QDDIAB CHEMO Administration Sertraline HCl 100 mg 10/28/21 10:00 10/28/21 10:28 Sertraline 100 Mg Tab PO 100 mg DAILY CHEMO Administration Sodium Chloride 10 ml 10/27/21 22:42 Sodium Chloride 0.9% 10 Ml Flush Syringe IV PRN PRN LINE FLUSH Tramadol HCl 50 mg 10/27/21 22:42 Tramadol 50 Mg Tab PO Q6H PRN Pain, Moderate (4-6)
[2021-10-29] MEDS ORDERED: SODIUM CHLORIDE 0.9% 250ML 250 ML IV ONE (10:00)
[2021-10-29] MEDS: RIVAROXABAN 20 MG TAB PO SCH (10:37)
[2021-10-29] MEDS: AMIODARONE 200 MG TAB PO SCH ×2 (10:37→22:32)
[2021-10-29] MEDS: LOSARTAN 50 MG TAB PO SCH (10:37)
[2021-10-29] MEDS: hydrALAZINE 25 MG TAB PO SCH ×2 (10:37→22:32)
[2021-10-29] MEDS: PANTOPRAZOLE 40 MG TAB PO SCH (10:38)
[2021-10-29] MEDS: SERTRALINE 100 MG TAB PO SCH (10:38)
--- NOTE | 2021-10-29 10:38 | Electrocardiograph Report ---
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
--- NOTE | 2021-10-29 10:39 | Electrocardiograph Report ---
[facility] Test Date: 2021-10-27 Test Time: 18:35:26 Pat Name: JACKELYN SUMMERS Department: Room: A476 1 Gender: M Credentialing Assistant: JACY : 1940 Requested By: WILSON ABDI Order Number: [id number] Reading MD: Mitzy Rai Measurements Intervals [place] Rate: 87 P: 39 [place]: 234 QRS: -44 QRSD: 98 T: 56 QT: 349 QTc: 420 Interpretive Statements Sinus rhythm FIRST DEGREE AV BLOCK Probable anteroseptal infarct, old Atrial fibrillation no longer present Ventricular premature complex(es) no longer present Compared to ECG 10/27/2021 18:05:03 First degree AV block now present Electronically Signed On 10-29-2021 10:39:22 EDT by Mitzy Rai
--- NOTE | 2021-10-29 10:42 | Electrocardiograph Report ---
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
--- NOTE | 2021-10-29 10:44 | Electrocardiograph Report ---
[facility] Test Date: 2021-10-28 Test Time: 10:44:15 Pat Name: JACKELYN SUMMERS Department: Room: A476 1 Gender: M Manager Benefit: FINN : 1940 Requested By: SIERRA MUÑIZ Order Number: [id number] Reading MD: Mitzy Rai Measurements Intervals [place] Rate: 61 P: 15 [place]: 200 QRS: -41 QRSD: 102 T: 19 QT: 429 QTc: 432 Interpretive Statements Sinus rhythm Left axis deviation Compared to ECG 10/28/2021 07:35:25 Left-axis deviation now present Left anterior fascicular block no longer present Electronically Signed On 10-29-2021 10:44:02 EDT by Mitzy Rai
--- NOTE | 2021-10-29 18:58 | Progress Note ---
Assessment and Plan - Patient Problems (1) Paroxysmal A-fib Current Visit: Yes Status: Acute Plan to address problem: Patient presented with a recurrence of rapid atrial fibrillation, which is likely etiology of his marked dyspnea on presentation. He has reverted to a stable sinus rhythm on medical therapy, symptoms have improved, will continue rhythm control therapy and oral anticoagulation with Xarelto. Patient looks and feels well, stable for cardiac discharge tomorrow. (2) Volume overload Current Visit: Yes Status: Acute Plan to address problem: Patient has a history of mild nonischemic cardiomyopathy, historical ejection fraction 40 to 45%. Presented with symptoms of rapid atrial fibrillation and mild volume overload. Looks and feels better today with inpatient treatment. Echocardiogram shows left ventricular systolic function unchanged, at 40 to 45%. Subjective Date of service: 10/29/21 Principal diagnosis: Fluid overload, rapid atrial fibrillation Interval history: Patient looks and feels better, no new cardiac complaints. He has remained in a stable sinus rhythm. Objective Vital Signs Temp Pulse Resp BP Pulse Ox 10/29/21 15:57 98.5 F 73 18 136/67 98 10/29/21 11:01 97.6 F 62 18 147/76 98 10/29/21 08:04 99 10/29/21 07:34 98.2 F 62 18 158/75 98 10/29/21 03:58 98.3 F 58 L 18 146/71 96 10/29/21 01:27 99 10/28/21 23:33 97.8 F 63 18 147/76 99 10/28/21 20:00 60 10/28/21 19:59 98.1 F 58 L 18 172/86 99 - Physical Examination HEENT: Positive: PERRL Neck: Positive: neck supple Cardiac: Positive: Reg Rate and Rhythm Lungs: Positive: Decreased Breath Sounds Neuro: Positive: Grossly Intact Abdomen: Positive: Soft Skin: Positive: Clear Extremities: Present: +1 Edema
[2021-10-30] MEDS: hydrALAZINE 25 MG TAB PO SCH (09:13)
[2021-10-30] MEDS: AMIODARONE 200 MG TAB PO SCH (09:13)
[2021-10-30] MEDS: RIVAROXABAN 20 MG TAB PO SCH (09:13)
[2021-10-30] MEDS: LOSARTAN 50 MG TAB PO SCH (09:14)
[2021-10-30] MEDS: PANTOPRAZOLE 40 MG TAB PO SCH (09:14)
[2021-10-30] MEDS: SERTRALINE 100 MG TAB PO SCH (09:14)
--- NOTE | 2021-10-30 09:19 | Progress Note ---
Assessment and Plan - Patient Problems (1) Paroxysmal A-fib Current Visit: Yes Status: Acute Plan to address problem: Patient presented with a recurrence of rapid atrial fibrillation, which is likely etiology of his marked dyspnea on presentation. He has reverted to a stable sinus rhythm on medical therapy, symptoms have improved, will continue rhythm control therapy with amiodarone and oral anticoagulation with Xarelto. Patient looks and feels well, stable for cardiac discharge today. (2) Volume overload Current Visit: Yes Status: Acute Plan to address problem: Patient has a history of mild nonischemic cardiomyopathy, historical ejection fraction 40 to 45%. Presented with symptoms of rapid atrial fibrillation and mild volume overload. Echocardiogram shows left ventricular systolic function unchanged, at 40 to 45%. Subjective Date of service: 10/30/21 Principal diagnosis: Fluid overload, rapid atrial fibrillation Interval history: Patient is comfortable, looks and feels well, no acute distress. He feels better and wants to go home today. He states that he needs to be home to continue caring for his who has dementia. Objective Vital Signs Temp Pulse Resp BP Pulse Ox 10/30/21 08:00 98.3 F 58 L 18 153/78 98 10/30/21 03:52 97.6 F 62 16 150/69 96 10/30/21 00:06 98.3 F 66 16 146/71 98 10/29/21 23:30 99 10/29/21 22:32 48 L 119/72 10/29/21 22:00 60 10/29/21 19:45 98.6 F 71 24 153/80 98 10/29/21 15:57 98.5 F 73 18 136/67 98 10/29/21 11:01 97.6 F 62 18 147/76 98 - Physical Examination HEENT: Positive: PERRL Neck: Positive: neck supple Cardiac: Positive: Reg Rate and Rhythm Lungs: Positive: Decreased Breath Sounds Neuro: Positive: Grossly Intact Abdomen: Positive: Soft Skin: Positive: Clear Extremities: Present: edema (Trace)
--- NOTE | 2021-10-30 10:09 | Discharge Summary ---
Providers - Providers Date of Admission: 10/27/21 22:42 Date of discharge: 10/30/21 Attending physician: AROLDO GALLEGOS 10/27/21 Consult to Cardiac Rehabilitation [CONS] Routine Reason For Exam: Phase I 10/27/21 20:47 Consult to Physician [CONS] Urgent Comment: Dr. Barba spoke with Dr. Hdz @ 2041 Consulting Provider: LEYLA HDZ Physician Instructions: Reason For Exam: Paroxysmal A. fib, CHF Primary care physician: AN EMPLOYEE SPONSOR OR ADVOCATE AND Hospitalization Condition: Stable Hospital course: --Paroxysmal A-fib/rate controlled Current Visit: Yes Status: Acute Continue amiodarone 200 mg p.o. twice daily, discontinue aspirin 325 mg p.o. daily. Continue Xarelto . Echo for LV function ejection fraction, follow cardiology evaluation and recommendations --Congestive heart failure/ LVEF 40-45% Current Visit: Yes Status: Chronic Fluid restriction. Lasix 40 mg IV daily. Maintain input output. Daily weight. Echocardiogram. Cardiology evaluation --Noncompliance with medication regimen Current Visit: Yes Status: Acute Counseled the patient regarding taking medication regularly. --Pulmonary embolism Current Visit: No Status: Acute Oxygen via nasal cannula 3 to per minute. DuoNeb and nebulizer every 4 hours. X arelto 15 mg p.o. twice daily --History of BPH (benign prostatic hyperplasia) Current Visit: No Status: Chronic Stable. We will continue the home medication --HTN (hypertension) Current Visit: No Status: Chronic Losartan 100 mg p.o. daily. Lasix 40 mg IV daily. Amiodarone 200 mg p.o. twice daily --DVT prophylaxis Current Visit: No Status: Acute Xarelto 15 mg p.o. twice daily for DVT prophylaxis. Protonix 40 mg p.o. daily for GI prophylaxis. Patient is a full code Follow cardiology evaluation recommendations We will closely monitor the patient and adjust the management as needed Plan of care reviewed with the patient and his nurse Closely monitor the patient and adjust the management as needed Plan of care reviewed with the patient and the nurse 10/29; continue current antifailure medications Ambulate as tolerated, follow clinically Possible discharge home tomorrow if stable and cleared by cardiology Disposition: HOME / SELF CARE / HOMELESS Exam - Constitutional Vitals: Temp Pulse Resp BP Pulse Ox 98.3 F 58 L 18 153/78 98 10/30/21 08:00 10/30/21 08:00 10/30/21 08:00 10/30/21 08:00 10/30/21 08:00 Plan Activity: advance as tolerated Diet: other (Cardiac diet) Additional Instructions: If you have worsening symptoms contact MD or go to the nearest emergency room as needed. Advised to follow-up with primary care physician, sponge fisherman per schedule. Strongly advised to comply with medications, diet and doctor's visits Follow up with: PRIMARY CARE,MD [Primary Care Provider] - 7 Days Prescriptions: hydrALAZINE [Apresoline TAB] 25 mg PO BID #60 tablet Amiodarone [Cordarone 200 MG TAB] 200 mg PO BID #60 tab Losartan [Cozaar] 100 mg PO DAILY #60 AtorvaSTATin [Lipitor] 40 mg PO QHS #30 tablet Pantoprazole [Protonix TAB] 40 mg PO QDAY #30 tablet Rivaroxaban [Xarelto] 20 mg PO QDDIAB #30 tablet
[2021-10-30 11:53] VITALS: BP 152/76
== END 2021-10-30 15:40 | disposition home or self-care (01) | DRG 310 ==
LOC: ED 18:01 → 4A 22:42
PROVIDERS: ADMIT Hospitalist; ATTEND Internal Medicine
DX: I48.0 Paroxysmal atrial fibrillation (principal); I50.9 Heart failure, unspecified; I11.0 Hypertensive heart disease with heart failure; Z86.711 Personal history of pulmonary embolism; Z79.899 Other long term (current) drug therapy; Z79.82 Long term (current) use of aspirin; Z91.19 Patient's noncompliance with other medical treatment and regimen; Z82.49 Family history of ischemic heart disease and other diseases of the circulatory system; M19.90 Unspecified osteoarthritis, unspecified site; N40.0 Benign prostatic hyperplasia without lower urinary tract symptoms; I42.8 Other cardiomyopathies; I27.20 Pulmonary hypertension, unspecified; Z88.6 Allergy status to analgesic agent
CPT/HCPCS: 36415; 71045; 80048; 80053; 82962; 83880; 84439; 84443; 84484; 85025; 85610; 85730; 93005; 93306; G0378; C8929; J1650; J1940; J7050